=== PATIENT | female | born 1955 | race Caucasian/White ===

== ENCOUNTER 2019-09-04 20:59 | Inpatient (IN) | payer BC, OTHER ==
[~2019-09-04] VITALS: Ht 160 cm; Wt 104.2 kg
--- NOTE | 2019-09-04 21:24 | ED Lower Extremity ---
General Chief Complaint: Lower Extremity Stated Complaint: L ANKLE INJ Source: patient Exam Limitations: no limitations (YVETTE JOSEPH,) History of Present Illness Date Seen by Provider: Sep 04, 2019 Time Seen by Provider: 21:13 Initial Comments Ms. Whitaker is here regarding a left ankle injury. She was walking down a ditch in flip flops and slid. She heard a pop and noticed her ankle was wobbly. She also describes it as tight. She states it is pretty tender to the touch and she is unable to bear weight. She has not taken any OTC pain medications. Onset: this evening Severity: moderate Pain/Injury Location: left ankle Method of Injury: other (slid down ditch) (YVETTE JOSEPH,) Initial Comments Here with report of left ankle pain after slipping and falling while wearing flip-flops. She was walking down a hill when she fell. She felt a pop and immediate pain to the left ankle and deformity was noted. Denies other injury or concerns. Approximately 2 hours prior to arrival Onset: this evening Severity: moderate, severe Pain/Injury Location: left ankle Method of Injury: fell, twisted Modifying Factors: Improves With Immobilization; Worse With Movement (JERONIMO AG MD) Allergies and Home Medications Allergies Coded Allergies: No Known Drug Allergies (Unverified , 09/04/19) Patient Home Medication List Home Medication List Reviewed: Yes (YVETTE JOSEPH,) Home Medication List Reviewed: Yes (JERONIMO AG MD) Review of Systems Constitutional: diaphoresis EENTM: no symptoms reported Respiratory: no symptoms reported Cardiovascular: no symptoms reported Gastrointestinal: no symptoms reported Genitourinary: no symptoms reported Musculoskeletal: joint pain (left ankle), joint swelling (left ankle) Skin: no symptoms reported Psychiatric/Neurological: No Symptoms Reported (YVETTE JOSEPH,) Constitutional: see HPI Respiratory: no symptoms reported; No dyspnea on exertion, No short of breath Cardiovascular: No edema, No palpitations Gastrointestinal: No abdominal pain, No nausea, No vomiting Genitourinary: no symptoms reported Musculoskeletal: joint pain (left ankle), joint swelling (left ankle) Skin: No change in color, No lesions (JERONIMO AG MD) All Other Systems Reviewed Negative Unless Noted: Yes (JERONIMO AG MD) Past [id number]-Jnptaq Hx Past Med/Social Hx: Reviewed Nursing Past Med/Soc Hx (JERONIMO AG MD) Patient Social History Alcohol Use: Denies Use Recreational Drug Use: No Smoking Status: Never a Smoker Recent Foreign Travel: No Contact w/Someone Who Travel: No (YVETTE JOSEPH,) Alcohol Use: Denies Use Recreational Drug Use: No Smoking Status: Never a Smoker (JERONIMO AG MD) Past Medical History Surgeries: Yes Eye Surgery (R cataract) Respiratory: No Cardiac: No Neurological: No Genitourinary: No Gastrointestinal: No Musculoskeletal: No Endocrine: Yes Hypothyroidsim HEENT: No Cataract (removed) (YVETTE JOSEPH,) Family Medical History Reviewed Nursing Family Hx (JERONIMO AG MD) Physical Exam Vital Signs Vital Signs - First Documented 09/04/19 21:17 Temp 36.9 Pulse 107 Resp 16 B/P (MAP) 146/86 (106) Pulse Ox 98 O2 Delivery Room Air (JERONIMO AG MD) Vital Signs Capillary Refill : (YVETTE JOSEPH,) Height, Weight, BMI Height: '" Weight: lbs. oz. kg; BMI Method: General Appearance: WD/WN, mild distress Cardiovascular: no murmur, tachycardia (regular rhythm) Respiratory: lungs clear, normal breath sounds Ankles: right ankle non-tender, right ankle normal inspection, right ankle normal range of motion; left ankle deformity, left ankle ecchymosis, left ankle pain, left ankle soft tissue tenderness, left ankle swelling Neurologic/Tendon: normal sensation, motor deficit (could not dorsiflex or plantarflex left foot) (YVETTE JOSEPH,) General Appearance: WD/WN, mild distress HEENT: PERRL/EOMI, pharynx normal Neck: non-tender, full range of motion, supple Cardiovascular: normal peripheral pulses, tachycardia (regular rhythm) Respiratory: lungs clear, normal breath sounds Gastrointestinal: non tender, soft Back: normal inspection, no CVA tenderness, no vertebral tenderness Hips: bilateral hip non-tender, bilateral hip normal inspection, bilateral hip normal range of motion Legs: bilateral leg non-tender, bilateral leg normal inspection, bilateral leg normal range of motion Knees: bilateral knee non-tender, bilateral knee normal inspection, bilateral knee normal range of motion Ankles: left ankle deformity, left ankle ecchymosis, left ankle pain, left ankle soft tissue tenderness, left ankle swelling, left ankle other (deformity noted with lateral turning of the foot.) Neurologic/Tendon: normal sensation, responds to pain Neurologic/Psychiatric: alert, oriented x 3 Skin: warm/dry, ecchymosis (left ankle and foot) (JERONIMO AG MD) Procedures/Interventions Patient Education: Explained Benefits, Explained Risks, Pt. Ack. Understanding Agreement on procedure with pt: Yes Breath Sounds per Auscultation: Clear Heart Sounds per Auscultation: Regular Airway Exam: Mouth opens >2 fingers, Neck Full Range of Motion, Visulation of Uvula Sedation Adminstration Time: 00:12 Total Time spent in CS 15 min Re-examination Time: 00:32 Re-examination Tolerated procedure and sedation well with no complications. No hypoxia, snoring or hypercapnia noted. Patient awake and talking throughout procedure. (JERONIMO AG MD) Splinting and Joint Reduction : Pre-Proc Neuro Vasc Exam: normal Post-Proc Neuro Vasc Exam: normal Progress Ankle fracture/dislocation with trimalleolar fracture to the left ankle. Reduction Attempts: 1 Pre-Procedure NV Exam: Yes Progress With the assistance of consciousness sedation, joint was reduced and splinted with plaster splint over bulky dressing and secured with Braulio wrap. Post x-ray shows good alignment and decreased angulation of bony fragments. Tolerated procedure well with no complications. Hand-Made Type: plaster Splint Application: Short Leg (JERONIMO AG MD) Progress/Results/Core Measures Results/Orders Lab Results Laboratory Tests Test 09/04/19 22:20 Range/Units White Blood Count 13.1 H 4.3-11.0 10^3/uL Red Blood Count 4.73 4.35-5.85 10^6/uL Hemoglobin 12.8 11.5-16.0 G/DL Hematocrit 38 35-52 % Mean Corpuscular Volume 81 80-99 FL Mean Corpuscular Hemoglobin 27 25-34 PG Mean Corpuscular Hemoglobin Concent 34 32-36 G/DL Red Cell Distribution Width 14.9 H 10.0-14.5 % Platelet Count 351 130-400 10^3/uL Mean Platelet Volume 11.4 H 7.4-10.4 FL Neutrophils (%) (Auto) 67 42-75 % Lymphocytes (%) (Auto) 22 12-44 % Monocytes (%) (Auto) 10 0-12 % Eosinophils (%) (Auto) 1 0-10 % Basophils (%) (Auto) 0 0-10 % Neutrophils # (Auto) 8.8 H 1.8-7.8 X 10^3 Lymphocytes # (Auto) 2.9 1.0-4.0 X 10^3 Monocytes # (Auto) 1.3 H 0.0-1.0 X 10^3 Eosinophils # (Auto) 0.1 0.0-0.3 10^3/uL Basophils # (Auto) 0.0 0.0-0.1 10^3/uL Sodium Level 139 135-145 MMOL/L Potassium Level 3.3 L 3.6-5.0 MMOL/L Chloride Level 105 98-107 MMOL/L Carbon Dioxide Level 21 21-32 MMOL/L Anion Gap 13 5-14 MMOL/L Blood Urea Nitrogen 11 7-18 MG/DL Creatinine 0.97 0.60-1.30 MG/DL Estimat Glomerular Filtration Rate 58 BUN/Creatinine Ratio 11 Glucose Level 110 H 70-105 MG/DL Calcium Level 9.0 8.5-10.1 MG/DL Corrected Calcium 8.9 8.5-10.1 MG/DL Total Bilirubin 0.7 0.1-1.0 MG/DL Aspartate Amino Transf (AST/SGOT) 18 5-34 U/L Alanine Aminotransferase (ALT/SGPT) 15 0-55 U/L Alkaline Phosphatase 76 40-136 U/L Total Protein 7.3 6.4-8.2 GM/DL Albumin 4.1 3.2-4.5 GM/DL (JERONIMO AG MD) My Orders Orders - JERONIMO AG MD Tibia/Fibula, Left, 2 Views (09/04/19 21:24) Ankle, Left, 3 Views (09/04/19 21:24) Cbc With Automated Diff (09/04/19 23:22) Comprehensive Metabolic Panel (09/04/19 23:22) Fentanyl Injection (Sublimaze Injection (09/04/19 23:22) Fentanyl Injection (Sublimaze Injection (09/04/19 23:42) Midazolam Injection (Versed Injection) (09/04/19 23:45) (JERONIMO AG MD) Medications Given in ED Current Medications Medications Dose Ordered Sig/Maritza Route Start Time Stop Time Status Last Admin Dose Admin Midazolam HCl 5 mg ONCE ONCE IVP 09/04/19 23:45 09/04/19 23:46 DC 09/05/19 00:10 2.5 MG (JERONIMO AG MD) Vital Signs/I&O 09/04/19 21:17 Temp 36.9 Pulse 107 Resp 16 B/P (MAP) 146/86 (106) Pulse Ox 98 O2 Delivery Room Air (JERONIMO AG MD) Progress Progress Note : Progress Note I have seen and evaluated the patient and agree with above except as indicated. I Have directed the plan of care. Patient is here with fracture dislocation of left ankle. Plan for conscious sedation and reduction. 2220: I did discuss the case with Dr. Farooq and he accepts patient for admission. Patient will require medicine consult for clearance for OR. Medicine team to be consulted in the morning. Fentanyl 50 g IV given for pain. 0012: Conscious sedation initiated for procedure for closed reduction and splinting of left ankle. 0035: Procedure complete with good alignment post reduction and splinting. Patient tolerated procedure well with no complications. Fentanyl 100 g IV and Versed 2.5 mg IV given for sedation and pain control. Patient will go upstairs now. (JERONIMO AG MD) Diagnostic Imaging Diagonstic Imaging: Xray Plain Films/CT/US/NM/MRI: other Comments [facility], [place] NAME: YUNIOR WHITAKER [facility] REC#: [id number] PT STATUS: REG ER : 1955 PHYSICIAN: JERONIMO AG MD ADMIT DATE: 09/04/19/ER Signed Date of Exam:09/04/19 TIBIA/FIBULA, LEFT, 2 VIEWS EXAMINATION: Left tibia and fibula 2 views HISTORY: Trauma COMPARISON: None available. FINDINGS: Bimalleolar fracture is better described on dedicated ankle radiographs. Proximal tibia and fibula are normal. IMPRESSION: 1. Bimalleolar ankle fracture better described on dedicated films. No proximal tibia-fibula fracture seen. Dictated by: Dictated on workstation # [id number] Dict: 09/04/192147 Trans: 09/04/192151 [facility] [phone] Interpreted by: YVONNE MEDINA MD Electronically signed by: YVONNE MEDINA MD 09/04/192151 Reviewed: Reviewed by Me Diagonstic Imaging: Xray Plain Films/CT/US/NM/MRI: ankle Comments [facility] [place] NAME: YUNIOR WHITAKER [facility] REC#: [id number] PT STATUS: REG ER : 1955 PHYSICIAN: JERONIMO AG MD ADMIT DATE: 09/04/19/ER Signed Date of Exam:09/04/19 ANKLE, LEFT, 3 VIEWS EXAMINATION: Left ankle 3 views HISTORY: Trauma COMPARISON: None available. FINDINGS: There is marked disruption of the ankle mortise due to a severely comminuted bimalleolar ankle fracture. There is also fracture of the malleus tertius. There is posterior dislocation of the talus relative to the distal tibia. There is severe soft tissue swelling. IMPRESSION: 1. Marked disruption of the ankle mortise with posterior dislocation of the talus due to a severely comminuted trimalleolar ankle fracture. Dictated by: Dictated on workstation # [id number] Dict: 09/04/192148 Trans: 09/04/192158 [facility] [phone] Interpreted by: YVONNE MEDINA MD Electronically signed by: YVONNE MEDINA MD 09/04/192158 Reviewed: Reviewed by Me Diagonstic Imaging: Xray Plain Films/CT/US/NM/MRI: ankle Comments Postreduction two-view film shows ankle and much better position with better bone alignment and decreased dislocation. Reviewed: Reviewed by Me (JERONIMO AG MD) Departure Communication (Admissions) Time/Spoke to Admitting Phy: 22:20 (JERONIMO AG MD) Impression Primary Impression: Trimalleolar fracture of left ankle Qualified Codes: S82.852A - Displaced trimalleolar fracture of left lower leg, initial encounter for closed fracture Disposition: ADMITTED INPATIENT Condition: Stable Admissions Decision to Admit Reason: Admit from ER (General) Decision to Admit/Date: Sep 04, 2019 Time/Decision to Admit Time: 22:20 (JERONIMO AG MD) Departure-Patient Inst. Referrals: NO,LOCAL PHYSICIAN (PCP/Family) Primary Care Physician YVETTE JOSEPH, Sep 04, 2019 21:24 JERONIMO AG MD Sep 05, 2019 00:36
--- OUTSIDE RECORDS SUMMARY | 2019-09-04 21:40 | XMS REPORT ---
Author Author Radha GARCIA Organization [facility] Address [address] [place] [id number] Care Team Providers Care Flocculator Operator Name Role Phone LILI GARCIA PCP LILI GARCIA PreferredProvider Allergies and Adverse Reactions Name Reaction Notes NO KNOWN DRUG ALLERGIES Plan of Treatment Not available. Medications Active Name Start Date Estimated Completion Date SIG Co mments levothyroxine 75 mcg oral tablet 07/11/2019 TAKE 1 TABLET(75 MCG) BY MOUTH EVERY DAY Name Start Date Expiration Date SIG Comments hydrochlorothiazide 12.5 mg oral tablet 07/14/2011 10/12/2011 take 1 tablet (12.5 mg) by oral route once daily for 30 days phentermine 37.5 mg oral tablet 09/08/2011 10/08/2011 take 1 tablet (37.5 mg) by oral route once daily before breakfast for 30 days Discontinued Name Start Date Discontinued Date SIG Comments Retin-A 0.025 % topical cream 08/13/2011 08/21/2014 ap ply to the affected area(s) by topical route once daily at bedtime phentermine 37.5 mg oral tablet 07/20/2016 07/11/2019 1/2 po in the am Synthroid 75 mcg oral tablet 07/11/2019 07/11/2019 MILKA E 1 TABLET (75 MCG) BY ORAL ROUTE ONCE DAILY Problem List Description Status Onset Medication management Active 06/28/2016 Acquired hypothyroidism Active 06/28/2016 Morbid obesity due to excess calories Active Vital Signs Date Time BP-Sys(mm[Hg] BP-Lu(mm[Hg]) HR(bpm) RR(rpm) Temp WT HT HC BMI BSA BMI Percentile O2 Sat(%) 06/18/2016 3:38:00 PM 125 mm[Hg] 88 mm[Hg] 60 {beats}/min 18 rpm 97.4 F 199.312 lbs 62 in 36.4544 kg/m2 1.9887 m2 98 % 05/16/2015 9:08:00 AM 128 mm[Hg] 60 mm[Hg] 68 {beats}/min 18 rpm 96.1 F 182 lbs 66 in 29.38 kg/m2 1.96 m2 97 % 08/21/2014 7:43:00 AM 140 mm[Hg] 85 mm[Hg] 92 {beats}/min 18 rpm 98.2 F 200 lbs 62 in 36.5801 kg/m2 1.9921 m2 99 % 09/08/2011 5:35:00 PM 124 mm[Hg] 66 mm[Hg] 66 {beats}/min 18 rpm 153.25 lbs 62 in 28.03 kg/m2 1.74 m2 08/11/2011 5:34:00 PM 126 mm[Hg] 64 mm[Hg] 68 {beats}/min 18 rpm 98.5 F 166.25 lbs 62 in 30.4072 kg/m2 1.8163 m2 07/14/2011 5:26:00 PM 128 mm[Hg] 68 mm[Hg] 68 {beats}/min 18 rpm 98.2 F 182 lbs 62 in 33.29 kg/m2 1.90 m2 08/12/2010 5:29:00 PM 130 mm[Hg] 82 mm[Hg] 83 {beats}/min 20 rpm 98.4 F 180.5 lbs 62 in 33.0135 kg/m2 1.8925 m2 99 % Social History Name Description Comments Tobacco Never smoker Uses seatbelts Alcohol Unknown History of Procedures Date Ordered Description Order Status 11/22/2014 12:00 AM ROUTINE VENIPUNCTURE Reviewed 11/22/2014 12:00 AM ASSAY OF TOTAL THYROXINE Reviewed 11/22/2014 12:00 AM ASSAY THYROID STIM HORMONE Reviewed 11/22/2014 12:00 AM ASSAY OF THYROID (T3 OR T4) Reviewed 05/16/2015 12:00 AM COMPLETE CBC W/AUTO DIFF WBC Reviewed 05/16/2015 12:00 AM COMPREHEN METABOLIC PANEL Reviewed 05/16/2015 12:00 AM LIPID PANEL Reviewed 05/16/2015 12:00 AM ROUTINE VENIPUNCTURE Reviewed 05/16/2015 12:00 AM ASSAY THYROID STIM HORMONE Reviewed 05/16/2015 12:00 AM ASSAY OF FREE THYROXINE Reviewed 11/18/2015 12:00 AM COMPLETE CBC W/AUTO DIFF WBC Returned 11/18/2015 12:00 AM COMPREHEN METABOLIC PANEL Returned 11/18/2015 12:00 AM LIPID PANEL Returned 11/18/2015 12:00 AM ROUTINE VENIPUNCTURE Reviewed 11/18/2015 12:00 AM ASSAY THYROID STIM HORMONE Returned 11/18/2015 12:00 AM ASSAY OF FREE THYROXINE Returned 05/19/2016 12:00 AM ROUTINE VENIPUNCTURE Reviewed 05/19/2016 12:00 AM ASSAY THYROID STIM HORMONE Returned 05/19/2016 12:00 AM ASSAY OF FREE THYROXINE Returned 08/12/2010 12:00 AM TB INTRADERMAL TEST Reviewed 08/21/2014 12:00 AM COMPLETE CBC W/AUTO DIFF WBC Reviewed 08/21/2014 12:00 AM COMPREHEN METABOLIC PANEL Reviewed 08/21/2014 12:00 AM LIPID PANEL Reviewed 08/21/2014 12:00 AM ASSAY THYROID STIM HORMONE Reviewed 08/21/2014 12:00 AM ASSAY OF FREE THYROXINE Reviewed Results Summary Date and Description Results 08/21/2014 4:06 PM WBC 9.0 RBC 4.94 HGB 13.50 g /dLHCT 41.40 %MCV 84.0 fLMCH 27.30 pgMCHC 32.60 g/dLRDW SD 46 RDW CV 14.90 %MPV 11.30 fLPLT 341 NRBC# 0.00 NRBC% 0.0 %NEUT 53.90 %%LYMP 39.0 %%MONO 4.90 %%EOS 1.90 %%BASO 0.30 %#NEUT 4.85 #LYMP 3.51 #MONO 0.44 #EOS 0.17 #BASO 0.03 MANUAL DIFF NOT IND TSH 7.650 uIU/mLFREE T4 0.90 GLUCOSE 105.0 mg/dLSODIUM 142.0 mmol/LPOTASSIUM 4.20 mmol/LCHLORIDE 110.0 mmol/LCO2 21.0 mmol/LBUN 11.0 mg/dLCREATININE 0.90 mg/dLSGOT/AST 15.0 IU/LSGPT/ALT 14.0 IU/LALK PHOS 75.0 IU/LTOTAL PROTEIN 6.60 g/dLALBUMIN 4.0 g/dLTOTAL BILI 0.70 mg/dLCALCIUM 9.0 mg/dLAGE 59 GFR NonAA 64 GFR AA 78 eGFR >60 mL/min/1.73 m2eGFR AA* >60 TRIGLYCERIDES 106.0 mg/dLCHOLESTEROL 168.0 mg/dLHDL 55.0 mg/dLTOT CHOL/HDL 3.1 LDL (CALC) 92.0 mg/dL 11/22/2014 3:16 PM TSH 1.530 uIU/mL 05/16/2015 4:09 PM TRIGLYCERIDES 98.0 mg/dLCHOL ESTEROL 189.0 mg/dLHDL 61.0 mg/dLTOT CHOL/HDL 3.1 LDL (CALC) 108.0 mg/dLWBC 8.9 RBC 4.88 HGB 13.10 g/dLHCT 41.40 %MCV 85.0 fLMCH 26.80 pgMCHC 31.60 g/dLRDW SD 47 RDW CV 15.20 %MPV 11.10 fLPLT 380 NRBC# 0.00 NRBC% 0.0 %NEUT 57.90 %%LYMP 34.80 %%MONO 5.60 %%EOS 1.50 %%BASO 0.20 %#NEUT 5.14 #LYMP 3.09 #MONO 0.50 #EOS 0.13 #BASO 0.02 MANUAL DIFF NOT IND GLUCOSE 75.0 mg/dLSODIUM 142.0 mmol/LPOTASSIUM 4.60 mmol/LCHLORIDE 107.0 mmol/LCO2 23.0 mmol/LBUN 9.0 mg/dLCREATININE 0.80 mg/dLSGOT/AST 15.0 IU/LSGPT/ALT 11.0 IU/LALK PHOS 76.0 IU/LTOTAL PROTEIN 6.50 g/dLALBUMIN 4.0 g/dLTOTAL BILI 0.70 mg/dLCALCIUM 8.60 mg/dLAGE 59 GFR NonAA 73 GFR AA 88 eGFR >60 mL/min/1.73 m2eGFR AA* >60 TSH 1.930 uIU/mLFREE T4 1.05 History Of Immunizations Name Date Admin Mfg Name Mfg Code Trade Name Lot# Route Inj Vis Given Vis Pub CVX ZVL 03/17/2016 Not Entered NE Not Entered Not Entered Not En tered 03/17/2016 03/08/2019 999 History of Past Illness Name Date of Onset Comments General Medical Exam, Adult Aug 12 2010 5:29PM Medication management 06/28/2016 Acquired hypothyroidism 06/28/2016 Morbid obesity due to excess calories 06/28/2016 Body Mass Index [BMI]; body mass index b etween 30-39, adult; body mass index 33.0-33.9, adult Jul 14 2011 5:28PM Dietary Counseling Jul 14 2011 5:28PM Exercise Counseling Jul 14 2011 5:28PM Edema Jul 14 2011 5:28PM Body Mass Index [BMI]; body mass index b etween 30-39, adult; body mass index 30.0-30.9, adult Aug 11 2011 5:36PM Hypertension Aug 11 2011 5:36PM Overweight Sep 08 2011 5:37PM Dietary Counseling Sep 08 2011 5:37PM Exercise Counseling Sep 08 2011 5:37PM Body Mass Index [BMI]; body mass index b etween 25-29, adult; body mass index 28.0-28.9, adult Sep 08 2011 5:37PM Fatigue Aug 21 2014 7:27AM Weight gain Aug 21 2014 7:27AM Hyperlipidemia Aug 21 2014 7:27AM Dietary Counseling Aug 21 2014 7:43AM Exercise Counseling Aug 21 2014 7:43AM Body Mass Index [BMI]; body mass index b etween 30-39, adult; body mass index 32.0-32.9, adult Aug 21 2014 7:43AM Polyphagia Aug 21 2014 7:43AM Hypothyroid Nov 22 2014 7:47AM Fatigue May 16 2015 7:37AM Weight gain May 16 2015 7:37AM Hyperlipidemia May 16 2015 7:37AM Hypothyroidism, Acquired Stable May 16 2015 9:08AM Fatigue Nov 18 2015 9:02AM Weight gain Nov 18 2015 9:02AM Hyperlipidemia Nov 18 2015 9:02AM Hypothyroid May 19 2016 1:01PM Morbid obesity due to excess calories Jun 18 2016 3:39PM Dietary Counseling Jun 18 2016 3:39PM Exercise Counseling Jun 18 2016 3:39PM Acquired hypothyroidism Jun 18 2016 3:39PM Medication management Jun 18 2016 3:39PM Medication refill Jul 11 2019 12:55PM Acquired hypothyroidism Jul 11 2019 12:55PM Payers Not available. History of Encounters Visit Date Visit Type Provider 07/11/2019 Office visit LILI SOUZA 06/18/2016 Office visit LILI SOUZA 05/19/2016 Laboratory 05/19/2016 Laboratory LILI SOUZA 11/18/2015 Office visit 11/18/2015 Office visit LILI SOUZA 05/16/2015 Office visit 05/16/2015 Office visit 05/16/2015 Office visit LILI SOUZA 11/22/2014 Office visit LILI SOUZA 08/21/2014 Office visit 08/21/2014 Office visit 08/21/2014 Office visit LILI SOUZA 09/08/2011 Office visit Veronica Velez APRN 08/11/2011 Office visit Veronica Velez APRN 07/14/2011 Office visit Veronica Velez APRN 08/12/2010 Office visit Veronica Velez APRN
--- OUTSIDE RECORDS SUMMARY | 2019-09-04 21:41 | XMS REPORT ---
Author Author [facility] Organization [facility] Address [address] [place] [id number] Care Team Providers Care Box Closing Machine Operator Name Role Phone PCP Unavailable Allergies and Adverse Reactions Name Reaction Notes NO KNOWN DRUG ALLERGIES Plan of Treatment Not available. Medications Active Name Start Date Estimated Completion Date SIG Co mments phentermine oral tablet 37.5 mg 08/28/2014 1/ po in the am Synthroid oral tablet 75 mcg 08/29/2014 bryan e 1 tablet (75 mcg) by oral route once daily Name Start Date Expiration Date SIG Comments hydrochlorothiazide Oral Tablet 12.5 mg 07/14/2011 10/12/2011 take 1 tablet (12.5 mg) by oral route once daily for 30 days phentermine Oral Tablet 37.5 mg 09/08/2011 10/08/2011 take 1 tablet (37.5 mg) by oral route once daily before breakfast for 30 days Discontinued Name Start Date Discontinued Date SIG Comments Retin-A Topical Cream 0.025 % 08/13/2011 08/21/2014 ap ply to the affected area(s) by topical route once daily at bedtime Problem List Not available. Vital Signs Date Time BP-Sys(mm[Hg] BP-Lu(mm[Hg]) HR(bpm) RR(rpm) Temp WT HT HC BMI BSA BMI Percentile O2 Sat(%) 08/21/2014 7:43:00 AM 140 mmHg 85 mmHg 92 bpm 18 rpm 98.2 F 200 lbs 62 in 36.58 kg/m2 1.99 m2 99 % 09/08/2011 5:35:00 PM 124 mmHg 66 mmHg 66 bpm 18 rpm 153.25 lbs 62 in 28.0295 kg/m 1.7438 m 08/11/2011 5:34:00 PM 126 mmHg 64 mmHg 68 bpm 18 rpm 98.5 F 166.25 lbs 62 in 30.41 kg/m2 1.82 m2 07/14/2011 5:26:00 PM 128 mmHg 68 mmHg 68 bpm 18 rpm 98.2 F 182 lbs 62 in 33.2879 kg/m 1.9003 m 08/12/2010 5:29:00 PM 130 mmHg 82 mmHg 83 bpm 20 rpm 98.4 F 180.5 lbs 62 in 33.01 kg/m2 1.89 m2 99 % Social History Name Description Comments smoking History of Procedures Date Ordered Description Order Status 08/12/2010 12:00 AM TB INTRADERMAL TEST Reviewed 08/21/2014 12:00 AM COMPLETE CBC W/AUTO DIFF WBC Returned 08/21/2014 12:00 AM COMPREHEN METABOLIC PANEL Returned 08/21/2014 12:00 AM LIPID PANEL Returned 08/21/2014 12:00 AM ASSAY THYROID STIM HORMONE Returned 08/21/2014 12:00 AM ASSAY OF FREE THYROXINE Returned Results Summary Data and Description Results 08/21/2014 4:06 PM WBC 9.0 RBC 4.94 HGB 13.50 g /dLHCT 41.40 %MCV 84.0 fLMCH 27.30 pgMCHC 32.60 g/dLRDW CV 14.90 %MPV 11.30 fLPLT 341 %NEUT 53.90 %%LYMP 39.0 %%MONO 4.90 %%EOS 1.90 %%BASO 0.30 %#NEUT 4.85 #LYMP 3.51 #MONO 0.44 #EOS 0.17 #BASO 0.03 TSH 7.650 uIU/mLGLUCOSE 105.0 mg/dLSODIUM 142.0 mmol/LPOTASSIUM 4.20 mmol/LCHLORIDE 110.0 mmol/LCO2 21.0 mmol/LBUN 11.0 mg/dLCREATININE 0.90 mg/dLSGOT/AST 15.0 IU/LSGPT/ALT 14.0 IU/LALK PHOS 75.0 IU/LTOTAL PROTEIN 6.60 g/dLALBUMIN 4.0 g/dLTOTAL BILI 0.70 mg/dLCALCIUM 9.0 mg/dLeGFR >60 mL/min/1.73 [id number] 106.0 mg/dLCHOLESTEROL 168.0 mg/dLHDL 55.0 mg/dLLDL (CALC) 92.0 mg/dL History Of Immunizations Not available. History of Past Illness Name Date of Onset Comments *No known medical problems General Medical Exam, Adult Aug 12 2010 5:29PM Body Mass Index [BMI]; body mass index [...] 2014 7:43AM Polyphagia Aug 21 2014 7:43AM Payers Not available. History of Encounters Visit Date Visit Type Provider 08/21/2014 Office visit LILI SOUZA 09/08/2011 Office visit Veronica Velez APRN 08/11/2011 Office visit Veronica Velez APRN 07/14/2011 Office visit Veronica Velez APRN 08/12/2010 Office visit Veronica Velez APRN
--- OUTSIDE RECORDS SUMMARY | 2019-09-04 21:41 | XMS REPORT ---
Author Author Radha GARCIA Organization [facility] Address [address] [place], [place] [id number] Care Team Providers Care Customer Account Manager Name Role Phone LILI GARCIA PCP Unavailable Allergies and Adverse Reactions Name Reaction Notes NO KNOWN DRUG ALLERGIES Plan of Treatment Planned Activity Comments Planned Date Planned Time Plan/Goal COMPLETE CBC W/AUTO DIFF WBC 11/22/2014 12:00 AM COMPREHEN METABOLIC PANEL 11/22/2014 12:00 AM LIPID PANEL 11/22/2014 12:00 AM ASSAY THYROID STIM HORMONE 11/22/2014 12:00 AM ASSAY OF FREE THYROXINE 11/22/2014 12:00 AM Medications Active Name Start Date Estimated Completion Date SIG Co mments Synthroid 75 mcg oral tablet 08/29/2014 bryan e 1 tablet (75 mcg) by oral route once daily phentermine 37.5 mg oral tablet 09/20/2014/ po in the am Name Start Date Expiration Date SIG Comments [...] % Social History Name Description Comments smoking Never History of Procedures Date Ordered Description Order Status 11/22/2014 12:00 AM ROUTINE VENIPUNCTURE Reviewed 08/12/2010 12:00 AM TB INTRADERMAL TEST Reviewed [...] BILI 0.70 mg/dLCALCIUM 9.0 mg/dLeGFR >60 mL/min/1.73 [id number] 106.0 mg/dLCHOLESTEROL 168.0 mg/dLHDL 55.0 mg/dLLDL (CALC) [...] 2014 7:43AM Polyphagia Aug 21 2014 7:43AM Fatigue Nov 22 2014 7:47AM Hypothyroid Nov 22 2014 7:47AM Payers Not available. History of Encounters Visit Date Visit Type Provider 11/22/2014 Office visit LILI SOUZA 08/21/2014 Office visit LILI SOUZA 09/08/2011 Office visit Veronica Velez APRN 08/11/2011 Office visit eVronica Velez APRN 07/14/2011 Office visit Veronica Velez APRN 08/12/2010 Office visit Veronica Vleez APRN
--- OUTSIDE RECORDS SUMMARY | 2019-09-04 21:41 | XMS REPORT ---
Author Author Radha GARCIA Organization [facility] Address [address] [place], [place] [id number] Care Team Providers Care Manager Supply Name Role Phone LILI GARCIA PCP Unavailable Allergies and Adverse Reactions Name Reaction Notes NO KNOWN DRUG ALLERGIES Plan of Treatment Planned Activity Comments Planned Date Planned Time Plan/Goal ASSAY OF TOTAL THYROXINE 11/22/2014 12:00 AM ASSAY THYROID STIM HORMONE 11/22/2014 12:00 AM ASSAY OF THYROID (T3 OR T4) 11/22/2014 12:00 AM Medications Active Name Start Date Estimated Completion Date SIG Co mments Synthroid 75 mcg oral tablet 08/29/2014 bryan e 1 tablet (75 mcg) by oral route once daily phentermine 37.5 mg oral tablet 09/20/201403/09 po in the am Name Start Date [...] BILI 0.70 mg/dLCALCIUM 9.0 mg/dLeGFR >60 mL/min/1.73 [id number] 106.0 mg/dLCHOLESTEROL 168.0 mg/dLHDL 55.0 mg/dLLDL (CALC) [...] 2014 7:43AM Hypothyroid Nov 22 2014 7:47AM Payers Not available. History of Encounters Visit Date Visit Type Provider 11/22/2014 Office visit LILI SOUZA 08/21/2014 Office visit LILI SOUZA 09/08/2011 Office visit Veronica Velez APRN 08/11/2011 Office visit Veronica Velez APRN 07/14/2011 Office visit Veronica Velez APRN 08/12/2010 Office visit Veronica Velez APRN
--- OUTSIDE RECORDS SUMMARY | 2019-09-04 21:41 | XMS REPORT ---
Author Author Radha GARCIA Organization [facility] Address [address] [place], [place] [id number] Care Team Providers Care Basketball Coach Name Role Phone LILI GARCIA PCP Unavailable Allergies and Adverse Reactions Name Reaction Notes NO KNOWN DRUG ALLERGIES Plan of Treatment Not available. Medications Active Name Start Date Estimated Completion Date SIG Co mments Synthroid 75 mcg oral tablet 08/29/2014 bryan e 1 tablet (75 mcg) by oral route once daily phentermine 37.5 mg oral tablet 05/18/2015 1/2 po in the am Synthroid 75 mcg oral tablet 05/18/2015 BRYAN E 1 TABLET (75 MCG) BY ORAL ROUTE ONCE DAILY Name Start Date Expiration Date SIG Comments [...] HC BMI BSA BMI Percentile O2 Sat(%) 05/16/2015 9:08:00 AM 128 mmHg 60 mmHg 68 bpm 18 rpm 96.1 F 182 lbs 66 in 29.38 kg/m2 1.96 m2 97 % 08/21/2014 7:43:00 AM 140 mmHg 85 mmHg 92 bpm 18 rpm 98.2 F 200 lbs 62 in 36.5801 kg/m 1.9921 m 99 % 09/08/2011 5:35:00 PM 124 mmHg 66 mmHg 66 bpm 18 rpm 153.25 lbs 62 in 28.03 kg/m2 1.74 m2 08/11/2011 5:34:00 PM 126 mmHg 64 mmHg 68 bpm 18 rpm 98.5 F 166.25 lbs 62 in 30.4072 kg/m 1.8163 m 07/14/2011 5:26:00 PM 128 mmHg 68 mmHg 68 bpm 18 rpm 98.2 F 182 lbs 62 in 33.29 kg/m2 1.90 m2 08/12/2010 5:29:00 PM 130 mmHg 82 mmHg 83 bpm 20 rpm 98.4 F 180.5 lbs 62 in 33.0135 kg/m 1.8925 m 99 % Social History Name Description Comments smoking Never History of Procedures Date Ordered Description Order Status 11/22/2014 12:00 AM ROUTINE VENIPUNCTURE Reviewed 11/22/2014 12:00 AM ASSAY OF TOTAL THYROXINE Returned 11/22/2014 12:00 AM ASSAY THYROID STIM HORMONE Returned 11/22/2014 12:00 AM ASSAY OF THYROID (T3 OR T4) Returned 05/16/2015 12:00 AM COMPLETE CBC W/AUTO DIFF WBC Returned 05/16/2015 12:00 AM COMPREHEN METABOLIC PANEL Returned 05/16/2015 12:00 AM LIPID PANEL Returned 05/16/2015 12:00 AM ROUTINE VENIPUNCTURE Reviewed 05/16/2015 12:00 AM ASSAY THYROID STIM HORMONE Returned 05/16/2015 12:00 AM ASSAY OF FREE THYROXINE Returned [...] BILI 0.70 mg/dLCALCIUM 9.0 mg/dLeGFR >60 mL/min/1.73 [id number] 106.0 mg/dLCHOLESTEROL 168.0 mg/dLHDL 55.0 mg/dLLDL (CALC) 92.0 mg/dL 11/22/2014 3:16 PM TSH 1.530 uIU/mLT4 6.50 ug/d LT3 TOTAL 92.0 ng/dL 05/16/2015 4:09 PM TRIGLYCERIDES 98.0 mg/dLCHOL ESTEROL 189.0 mg/dLHDL 61.0 mg/dLLDL (CALC) 108.0 mg/dLWBC 8.9 RBC 4.88 HGB 13.10 g/dLHCT 41.40 %MCV 85.0 fLMCH 26.80 pgMCHC 31.60 g/dLRDW CV 15.20 %MPV 11.10 fLPLT 380 %NEUT 57.90 %%LYMP 34.80 %%MONO 5.60 %%EOS 1.50 %%BASO 0.20 %#NEUT 5.14 #LYMP 3.09 #MONO 0.50 #EOS 0.13 #BASO 0.02 GLUCOSE 75.0 mg/dLSODIUM 142.0 mmol/LPOTASSIUM 4.60 mmol/LCHLORIDE 107.0 mmol/LCO2 23.0 mmol/LBUN 9.0 mg/dLCREATININE 0.80 mg/dLSGOT/AST 15.0 IU/LSGPT/ALT 11.0 IU/LALK PHOS 76.0 IU/LTOTAL PROTEIN 6.50 g/dLALBUMIN 4.0 g/dLTOTAL BILI 0.70 mg/dLCALCIUM 8.60 mg/dLeGFR >60 mL/min/1.73mTSH 1.930 uIU/mL History Of Immunizations Not available. History of [...] Hypothyroidism, Acquired Stable May 16 2015 9:08AM Payers Not available. History of Encounters Visit Date Visit Type Provider 05/16/2015 Office visit 05/16/2015 Office visit 05/16/2015 Office visit LILI SOUZA 11/22/2014 Office visit LILI SOUZA 08/21/2014 Office visit 08/21/2014 Office visit 08/21/2014 Office visit LILI SOUZA 09/08/2011 Office visit Veronica Velez APRN 08/11/2011 Office visit Veronica Velez APRN 07/14/2011 Office visit Veronica Velez APRN 08/12/2010 Office visit Veronica Velez APRN
--- OUTSIDE RECORDS SUMMARY | 2019-09-04 21:41 | XMS REPORT ---
Author Author [facility] ou Organization [facility] Address [address] [place], [place] [id number] Care Team Providers Care Drill Operator Name Role Phone PCP Unavailable Allergies and Adverse Reactions Name Reaction Notes NO KNOWN DRUG ALLERGIES Plan of Treatment Not available. Medications Active Name Start Date Estimated Completion Date SIG Co mments phentermine oral tablet 37.5 mg 08/28/201403/09 po in the am Name Start Date [...] BILI 0.70 mg/dLCALCIUM 9.0 mg/dLeGFR >60 mL/min/1.73 [id number] 106.0 mg/dLCHOLESTEROL 168.0 mg/dLHDL 55.0 mg/dLLDL (CALC) [...]
--- OUTSIDE RECORDS SUMMARY | 2019-09-04 21:41 | XMS REPORT ---
Author Author Radha GARCIA Organization [facility] Address [address] [place], [place] [id number] Care Team Providers Care Aco Coordinator Name Role Phone LILI GARCIA PCP Unavailable [...] BILI 0.70 mg/dLCALCIUM 9.0 mg/dLeGFR >60 mL/min/1.73 [id number] 106.0 mg/dLCHOLESTEROL 168.0 mg/dLHDL 55.0 mg/dLLDL (CALC) [...]
--- OUTSIDE RECORDS SUMMARY | 2019-09-04 21:41 | XMS REPORT ---
Author Author Radha GARCIA Organization [facility] Address [address] [place], [place] [id number] Care Team Providers Care Hairspring Assembler Name Role Phone LILI GARCIA PCP Unavailable Allergies and Adverse Reactions Name Reaction Notes NO KNOWN DRUG ALLERGIES Plan of Treatment Planned Activity Comments Planned Date Planned Time Plan/Goal COMPLETE CBC W/AUTO DIFF WBC 11/18/2015 12:00 AM COMPREHEN METABOLIC PANEL 11/18/2015 12:00 AM LIPID PANEL 11/18/2015 12:00 AM ASSAY THYROID STIM HORMONE 11/18/2015 12:00 AM ASSAY OF FREE THYROXINE 11/18/2015 12:00 AM Medications Active Name Start Date [...] 12:00 AM ASSAY OF FREE THYROXINE Returned 11/18/2015 12:00 AM ROUTINE VENIPUNCTURE Reviewed 08/12/2010 12:00 [...] BILI 0.70 mg/dLCALCIUM 9.0 mg/dLeGFR >60 mL/min/1.73 [id number] 106.0 mg/dLCHOLESTEROL 168.0 mg/dLHDL 55.0 mg/dLLDL (CALC) [...] 2015 9:02AM Hyperlipidemia Nov 18 2015 9:02AM Payers Not available. History of Encounters Visit Date Visit Type Provider 11/18/2015 Office visit 11/18/2015 Office visit LILI [...]
--- OUTSIDE RECORDS SUMMARY | 2019-09-04 21:41 | XMS REPORT ---
Author Author Radha GARCIA Organization [facility] Address [address] [place] [id number] Care Team Providers Care Transcribing Operators Supervisor Name Role Phone LILI GARCIA PCP Unavailable LILI GARCIA PreferredProvider Unavailable Allergies and Adverse Reactions Name Reaction Notes NO KNOWN DRUG ALLERGIES Plan of Treatment Planned Activity Comments Planned Date Planned Time Plan/Goal TSH (thyroid stimulating hormone) 05/19/2016 12:00 A M Free T4 05/19/2016 12:00 AM Medications Active Name Start Date Estimated Completion Date SIG Co mments Synthroid 75 mcg oral tablet 08/29/2014 bryan e 1 tablet (75 mcg) by oral route once daily phentermine 37.5 mg oral tablet 05/18/2015 1/2 po in the am Synthroid 75 mcg oral tablet 11/21/2015 BRYAN E 1 TABLET (75 MCG) BY [...] Returned 05/19/2016 12:00 AM ROUTINE VENIPUNCTURE Reviewed 08/12/2010 12:00 AM TB INTRADERMAL TEST Reviewed 08/21/2014 12:00 AM COMPLETE CBC W/AUTO DIFF WBC Reviewed 08/21/2014 12:00 AM COMPREHEN METABOLIC PANEL Reviewed 08/21/2014 12:00 AM LIPID PANEL Reviewed 08/21/2014 12:00 AM ASSAY THYROID STIM HORMONE Reviewed 08/21/2014 12:00 AM ASSAY OF FREE THYROXINE Reviewed Results Summary Data and Description Results 08/21/2014 [...] 92.0 mg/dL 11/22/2014 3:16 PM TSH 1.530 uIU/mLFREE T4 1.14 T4 6.50 ug/dLT3 TOTAL 92.0 ng/dL 05/16/2015 4:09 PM TRIGLYCERIDES [...] NonAA 73 GFR AA 88 eGFR >60 mL/min/1.73meGFR AA* >60 TSH 1.930 uIU/mLFREE T4 1.05 11/18/2015 4:41 PM TRIGLYCERIDES 134.0 mg/dLCHO LESTEROL 192.0 mg/dLHDL 55.0 mg/dLTOT CHOL/HDL 3.5 LDL (CALC) 110.0 mg/dLGLUCOSE 104.0 mg/dLSODIUM 141.0 mmol/LPOTASSIUM 4.40 mmol/LCHLORIDE 108.0 mmol/LCO2 22.0 mmol/LBUN 10.0 mg/dLCREATININE 0.90 mg/dLSGOT/AST 14.0 IU/LSGPT/ALT 9.0 IU/LALK PHOS 86.0 IU/LTOTAL PROTEIN 6.80 g/dLALBUMIN 4.10 g/dLTOTAL BILI 0.60 mg/dLCALCIUM 9.0 mg/dLAGE 60 GFR NonAA 64 GFR AA 78 eGFR >60 mL/min/1.73meGFR AA* >60 TSH 2.430 uIU/mLFREE T4 1.04 WBC 9.8 RBC 5.12 HGB 13.30 g/dLHCT 42.70 %MCV 83.0 fLMCH 26.0 pgMCHC 31.10 g/dLRDW SD 45 RDW CV 14.60 %MPV 10.90 fLPLT 390 NRBC# 0.00 NRBC% 0.0 %NEUT 52.50 %%LYMP 39.60 %%MONO 5.30 %%EOS 1.70 %%BASO 0.40 %#NEUT 5.16 #LYMP 3.90 #MONO 0.52 #EOS 0.17 #BASO 0.04 MANUAL DIFF SEE BELOW SEGS 53 BANDS 1 LYMPHS 39 MONOS 6 EOS 1.0 % History Of Immunizations Name Date Admin Mfg Name Mfg Code Trade Name Lot# Route Inj Vis Given Vis Pub CVX Zostavax 03/17/2016 Not Entered NE Not Entered Not Entered N ot Entered 03/17/2016 03/08/2016 999 History of Past Illness Name Date [...] 2015 9:02AM Hypothyroid May 19 2016 1:01PM Payers Not available. History of Encounters Visit Date Visit Type Provider 05/19/2016 Laboratory 05/19/2016 Laboratory Uzma Wallace DOMRAN 11/18/2015 Office visit 11/18/2015 Office visit LILI [...]
--- OUTSIDE RECORDS SUMMARY | 2019-09-04 21:41 | XMS REPORT ---
Author Author [facility] ou Organization [facility] Address [address] [place], [place] [phone] Care Team Providers Care Ground Crewman Mission Support Name Role Phone PCP Unavailable Allergies and Adverse Reactions Name Reaction Notes NO KNOWN DRUG ALLERGIES Plan of Treatment Planned Activity Comments Planned Date Planned Time Plan/Goal COMPLETE CBC W/AUTO DIFF WBC 08/21/2014 12:00 AM COMPREHEN METABOLIC PANEL 08/21/2014 12:00 AM LIPID PANEL 08/21/2014 12:00 AM ASSAY THYROID STIM HORMONE 08/21/2014 12:00 AM ASSAY OF FREE THYROXINE 08/21/2014 12:00 AM Medications Name Start Date Expiration Date SIG Comments [...] HC BMI BSA BMI Percentile O2 Sat(%) 09/08/2011 5:35:00 PM 124 mmHg 66 mmHg [...] 08/12/2010 12:00 AM TB INTRADERMAL TEST Reviewed Results Summary Not available. History Of Immunizations Not available. History of [...] 2014 7:27AM Hyperlipidemia Aug 21 2014 7:27AM Payers Not available. History of Encounters Visit Date Visit Type Provider 08/21/2014 Office visit LILI SOUZA 09/08/2011 Office visit Veronica Velez APRN 08/11/2011 Office visit Veronica Velez APRN 07/14/2011 Office visit Veronica Velez APRN 08/12/2010 Office visit Veronica Velez APRN
--- OUTSIDE RECORDS SUMMARY | 2019-09-04 21:42 | XMS REPORT | Continuity of Care Document ---
Author Organization Unknown Address Unknown Phone Unavailable Allergies Active Description Code Type Severity Reaction Onset Reported/Identified Relationship to Patient Clinical Status Yes No Known Drug Allergies [id number] Drug Allergy Unknown N/A 09/04/2019 Medications There is no data. Problems There is no data. Procedures There is no data. Results There is no data. Encounters ACCT No. Visit Date/Time Discharge Status Pt. Type Provider Facility Loc./Unit Complaint [id number] 07/11/2019 12:13:03 07/11/2019 23:59: [facility] Outpatient LILI GARCIA [id number] 06/30/2016 11:41:25 06/30/2016 23:59: [facility] Outpatient LILI GARCIA [id number] 05/19/2016 08:49:44 05/19/2016 23:59: [facility] Outpatient LILI GARCIA [id number] 11/18/2015 08:31:27 11/18/2015 23:59: [facility] Outpatient LILI GARCIA [id number] 05/16/2015 08:17:37 05/16/2015 23:59: [facility] Outpatient LILI GARCIA [id number] 11/22/2014 08:15:24 11/22/2014 23:59: [facility] Outpatient LILI GARCIA [id number] 10/15/2014 21:55:40 10/15/2014 23:59: [facility] Outpatient LILI GARCIA [id number] 09/04/2019 21:01:[address] Emergency ANCELMO SERRANO, JERONIMO Rahman [facility] ER L ANKLE INJ
--- OUTSIDE RECORDS SUMMARY | 2019-09-04 21:42 | XMS REPORT ---
Author Author Radha GARCIA Organization [facility] Address [address] [place] [phone] Care Team Providers Care Child Care Associate Teacher Name Role Phone LILI GARCIA PCP Unavailable LILI GARCIA PreferredProvider Unavailable Allergies and Adverse Reactions Name Reaction Notes NO KNOWN DRUG ALLERGIES Plan of Treatment Not available. Medications Active Name Start Date Estimated Completion Date SIG Co mments Synthroid 75 mcg oral tablet 08/29/2014 bryan e 1 tablet (75 mcg) by oral route once daily Synthroid 75 mcg oral tablet 05/21/2016 BRYAN E 1 TABLET (75 MCG) BY ORAL ROUTE ONCE DAILY Synthroid 75 mcg oral tablet 06/22/2016 BRYAN E 1 TABLET (75 MCG) BY ORAL ROUTE ONCE DAILY Synthroid 75 mcg oral tablet 06/22/2016 BRYAN E 1 TABLET (75 MCG) BY ORAL ROUTE ONCE DAILY phentermine 37.5 mg oral tablet 06/18/2016 1/2 po in the am Name Start Date [...] route once daily at bedtime Problem List Description Status Onset Medication management Active 06/28/2016 Acquired hypothyroidism Active 06/28/2016 Morbid obesity due to excess calories Active Vital Signs Date Time BP-Sys(mm[Hg] BP-Lu(mm[Hg]) HR(bpm) RR(rpm) Temp WT HT HC BMI BSA BMI Percentile O2 Sat(%) 06/18/2016 3:38:00 PM 125 mmHg 88 mmHg 60 bpm 18 rpm 97.4 F 199.312 lbs 62 in 36.45 kg/m2 1.99 m2 98 % 05/16/2015 9:08:00 AM 128 mmHg 60 mmHg 68 bpm 18 rpm 96.1 F 182 lbs 66 in 29.3753 kg/m 1.9607 m 97 % 08/21/2014 7:43:00 AM 140 mmHg [...] LYMPHS 39 MONOS 6 EOS 1.0 % 05/19/2016 4:26 PM TSH 1.950 uIU/mLFREE T4 1.17 History Of Immunizations Name Date Admin Mfg [...] 3:39PM Medication management Jun 18 2016 3:39PM Payers Not available. History of Encounters Visit Date Visit Type Provider 06/18/2016 Office visit LILI SOUZA 05/19/2016 Laboratory 05/19/2016 Laboratory LILI SOUZA 11/18/2015 Office visit 11/18/2015 Office visit LILI SOUZA 05/16/2015 Office visit 05/16/2015 Office visit 05/16/2015 Office visit ILLI SOUZA 11/22/2014 Office visit LILI SOUZA 08/21/2014 Office visit 08/21/2014 Office visit 08/21/2014 Office visit LILI SOUZA 09/08/2011 Office visit Veronica Velez APRN 08/11/2011 Office visit Veronica Velez APRN 07/14/2011 Office visit Veronica Velez APRN 08/12/2010 Office visit Veronica Velez APRN
--- NOTE | 2019-09-04 21:51 | Diagnostic Imaging Report ---
EXAMINATION: Left tibia and fibula 2 views HISTORY: Trauma COMPARISON: None available. FINDINGS: Bimalleolar fracture is better described on dedicated ankle radiographs. Proximal tibia and fibula are normal. IMPRESSION: 1. Bimalleolar ankle fracture better described on dedicated films. No proximal tibia-fibula fracture seen. Dictated by: Dictated on workstation # [id number]
--- NOTE | 2019-09-04 21:59 | Diagnostic Imaging Report ---
EXAMINATION: Left ankle 3 views HISTORY: Trauma COMPARISON: None available. FINDINGS: There is marked disruption of the ankle mortise due to a severely comminuted bimalleolar ankle fracture. There is also fracture of the malleus tertius. There is posterior dislocation of the talus relative to the distal tibia. There is severe soft tissue swelling. IMPRESSION: 1. Marked disruption of the ankle mortise with posterior dislocation of the talus due to a severely comminuted trimalleolar ankle fracture. Dictated by: Dictated on workstation # [id number]
[2019-09-04] MEDS ORDERED: fentaNYL INJECTION 100 MCG/2 ML AMP IVP STA ×2 (23:22→23:42)
[2019-09-04 23:32] LABS: BASOPHILS % (AUTO) 0 % (0-10); EOSINOPHILS # (AUTO) 0.1 10^3/uL (0.0-0.3); EOSINOPHILS % (AUTO) 1 % (0-10); HEMATOCRIT 38 % (35-52); HEMOGLOBIN 12.8 G/DL (11.5-16.0); LYMPHOCYTES # (AUTO) 2.9 X 10^3 (1.0-4.0); LYMPHOCYTES % (AUTO) 22 % (12-44); MEAN CORPUSCULAR HEMOGLOBIN 27 PG (25-34); MEAN CORPUSCULAR HGB CONC 34 G/DL (32-36); MEAN CORPUSCULAR VOLUME 81 FL (80-99); MEAN PLATELET VOLUME 11.4 FL (7.4-10.4); MONOCYTES # (AUTO) 1.3 X 10^3 (0.0-1.0); MONOCYTES % (AUTO) 10 % (0-12); NEUTROPHILS # (AUTO) 8.8 X 10^3 (1.8-7.8); NEUTROPHILS % (AUTO) 67 % (42-75); PLATELET COUNT 351 10^3/uL (130-400); RED CELL DISTRIBUTION WIDTH 14.9 % (10.0-14.5); WHITE BLOOD COUNT 13.1 10^3/uL (4.3-11.0)
[2019-09-04 23:33] LABS: ALBUMIN 4.1 GM/DL (3.2-4.5); POTASSIUM 3.3 MMOL/L (3.6-5.0)
[2019-09-04 23:35] LABS: TOTAL PROTEIN 7.3 GM/DL (6.4-8.2)
[2019-09-04 23:37] LABS: BILIRUBIN,TOTAL 0.7 MG/DL (0.1-1.0)
[2019-09-04 23:39] LABS: CREATININE SERUM 0.97 MG/DL (0.60-1.30)
[2019-09-04] MEDS ORDERED: MIDAZOLAM 5 MG/5 ML (VERSED) VIAL IVP ONE (23:45)
[2019-09-05] VITALS (11 sets, daily range): BP systolic 125–156; BP diastolic 64–81
--- OUTSIDE RECORDS SUMMARY | 2019-09-05 00:28 | XMS REPORT | Continuity of Care Document ---
Author Organization Unknown Address Unknown Phone Unavailable Allergies Active Description Code Type Severity Reaction Onset Reported/Identified Relationship to Patient Clinical Status Yes No Known Drug Allergies [id number] Drug Allergy Unknown N/A 09/04/2019 Medications There is no data. Problems There is no data. Procedures There is no data. Results There is no data. Encounters ACCT No. Visit Date/Time Discharge Status Pt. Type Provider Facility Loc./Unit Complaint [id number] 07/11/2019 12:13:03 07/11/2019 23:59: [facility] Outpatient LILI GARCIA [id number] 06/30/2016 11:41:25 06/30/2016 23:59: 59 [facility] Outpatient LILI GARCIA [id number] 05/19/2016 08:49:44 05/19/2016 23:59: 59 [facility] Outpatient LILI GARCIA [id number] 11/18/2015 08:31:27 11/18/2015 23:59: 59 [facility] Outpatient LILI GARCIA [id number] 05/16/2015 08:17:37 05/16/2015 23:59: 59 [facility] Outpatient LILI GARCIA [id number] 11/22/2014 08:15:24 11/22/2014 23:59: 59 [facility] Outpatient LILI GARCIA [id number] 10/15/2014 21:55:40 10/15/2014 23:59: 59 [facility] Outpatient LILI GARCIA [id number] 09/04/2019 21:01:[address] Emergency ANCELMO SERRANO, JERONIMO Rahman [facility] ER L ANKLE INJ
--- NOTE | 2019-09-05 00:55 | NUR ---
YUNIOR WHITAKER admitted to room 406-1, with an admitting diagnosis of trimalleolar fracture of left ankle, on 09/05/19 from ER via bed, accompanied by er staff. YUNIOR WHITAKER introduced to surroundings, call light, bed controls, phone, TV, temperature control, lights, meal times, smoking policy, visitor policy, side rail policy, bathrooms and showers. Patient Rights given to patient in the handbook. YUNIOR WHITAKER verbalizes understanding that [facility] is not responsible for the loss or damage to any personal effects or valuables that are kept in the patients posession during their hospitalization.
[2019-09-05] MEDS ORDERED: NS IV 1000 ML 1,000 ML ONE (01:26)
[2019-09-05] MEDS: NS IV 1000 ML 1,000 ML IV SCH ×2 (01:55→13:15)
[2019-09-05] MEDS ORDERED: ONDANSETRON 4 MG/2 ML (SDV) Z0FRAN IV PRN (02:00)
[2019-09-05] MEDS ORDERED: fentaNYL INJECTION 100 MCG/2 ML AMP IV PRN (02:00)
--- NOTE | 2019-09-05 06:01 | Diagnostic Imaging Report ---
Indication: Left ankle fracture follow-up 3 views of left ankle show an oblique fracture of the distal fibula, there is an avulsion fracture with medial displacement of the medial malleolus. There is a nondisplaced posterior malleolar fracture. IMPRESSION: Trimalleolar fracture. The tibiotalar relationship has been corrected following closed reduction. Dictated by: Dictated on workstation # [id number]
--- NOTE | 2019-09-05 08:50 | NUR ---
COVID 19 SWAB WAS DONE AND SENT TO LAB -- COPY OF FORM WILL BE GIVEN TO [facility] DEVELOPER
--- NOTE | 2019-09-05 09:02 | History & Physical Orthopedic ---
History and Physical Subjective Date of Exam 09/05/19 Chief Complaint Left ankle fracture HPI/Events since last exam Ms. Turk is a 64-year-old white female who injured her left ankle last evening while going down into a ditch. She stated she is wearing flip-flops and slipped and heard a pop in her ankle. She was unable to bear weight and noted a deformity of her ankle. She is brought to the emergency room where she is evaluated and x-rayed and noted to have a trimalleolar fracture left ankle. She denies any other injuries. No previous injury to left ankle. She was splinted after reduction and admitted for surgical treatment. She is from [place] and has no physician in this area. She does see Crispin Fuller is a [facility] and [place]. She does have a history of hypothyroidism Medical, Surgical History Surgerycataracts Illnesseshypothyroidism Allergiesnone Medicationthyroid medication Social History The patient is retired. She did own a day care. She does live in [place] Family History Reviewed and unchanged Review of Systems Negative for cardiovascular disease pulmonary disease renal disease history of hypothyroidism Allergies: Coded Allergies: No Known Drug Allergies (Unverified , 09/04/19) Home Medication List Reviewed: Yes Objective Exam Constitutional: []Ms Olson is a 64-year-old white female in no acute distress. She is alert and oriented HEENT: [] Within normal limits Neck: [] Full motion without pain. No pain with palpation Cardiovascular: [] Regular rhythm without murmurs Respiratory: [] Clear Gastrointestinal: [] Negative Genitourinary: [] Negative Skin: [] Negative Back/Spine: [] No pain with palpation or motion Extremities: [] Upper extremity shows full range of motion without pain. No deformity. Normal sensation with good cap refill. Good radial pulses. No pain at the shoulders, elbows, wrists or hands Lower extremitiesfull range of motion right hip, right knee and right ankle without pain. No deformity. She has normal sensation with good cap refill and good pulses in the right lower extremity. Left lower extremity she has a splint on the left ankle. She is able to move her toes and has normal sensation with good capillary refill. No pain with palpation at the knee or hip. No pain with gentle range of motion of the left knee and left hip Neurologic: [] Intact Psychiatric: [] Within normal limits Hematologic/lymphatic/immunologic: [] Negative Vital Signs Vital Signs Date Time Temp Pulse Resp B/P (MAP) Pulse Ox O2 Delivery O2 Flow Rate FiO2 09/05/19 08:00 94 Room Air 2.00 09/05/19 04:45 37.4 80 16 153/81 (105) 94 Room Air 09/05/19 01:03 38.1 100 18 155/80 95 Room Air 09/05/19 01:00 95 Room Air 09/05/19 00:43 87 16 142/62 96 09/05/19 00:20 92 16 157/84 94 Nasal Cannula 2.00 09/05/19 00:15 95 16 150/70 89 Room Air 09/05/19 00:09 36.8 90 16 163/66 99 Room Air 09/05/19 00:09 Nasal Cannula 2.00 09/04/19 21:17 36.9 107 16 146/86 (106) 98 Room Air I & O 09/05/19 07:00 Intake Total 0 ml Balance 0 ml Lab Results Laboratory Tests 09/04/19 22:20: White Blood Count 13.1H, Red Blood Count 4.73, Hemoglobin 12.8, Hematocrit 38, Mean Corpuscular Volume 81, Mean Corpuscular Hemoglobin 27, Mean Corpuscular Hemoglobin Concent 34, Red Cell Distribution Width 14.9H, Platelet Count 351, Mean Platelet Volume 11.4H, Neutrophils (%) (Auto) 67, Lymphocytes (%) (Auto) 22, Monocytes (%) (Auto) 10, Eosinophils (%) (Auto) 1, Basophils (%) (Auto) 0, Neutrophils # (Auto) 8.8H, Lymphocytes # (Auto) 2.9, Monocytes # (Auto) 1.3H, Eosinophils # (Auto) 0.1, Basophils # (Auto) 0.0, Sodium Level 139, Potassium Level 3.3L, Chloride Level 105, Carbon Dioxide Level 21, Anion Gap 13, Blood Urea Nitrogen 11, Creatinine 0.97, Estimat Glomerular Filtration Rate 58, BUN/Creatinine Ratio 11, Glucose Level 110H, Calcium Level 9.0, Corrected Calcium 8.9, Total Bilirubin 0.7, Aspartate Amino Transf (AST/SGOT) 18, Alanine Aminotransferase (ALT/SGPT) 15, Alkaline Phosphatase 76, Total Protein 7.3, Albumin 4.1 09/05/19 08:31: Imaging X-rays prereduction show a subluxation of the talus posterior laterally with fracture of the fibula medial malleolus and posterior malleolus. The posterior malleolar fragment does not involve the articular surface. Postreduction showed improvement in alignment but still displacement of the medial malleolus. Assessment and Plan Assessment Fracture left ankle Problem List Trimalleolar fracture left ankle Hypothyroidism History of cataracts Plan Treatment options were discussed with the patient. I recommended open reduction internal fixation. Plan on plate and screws laterally and screws medially. I explained her that usually the posterior malleolar fragment being nonarticular does not need to be fixed and usually reduces with fixation medial and laterally. I discussed use of anabolic screen postop as well as DVT prophylaxis. I would recommend aspirin 1 a day for a month. We will plan on getting her up first day postop. We'll use compression devices on the right. She would prefer not having injections for DVT prophylaxis Final Diagonsis Trimalleolar fracture left ankle Level of the visit: Level 3 DALJIT PEPE MD Sep 05, 2019 09:02
[2019-09-05] MEDS ORDERED: NEO/POLY/BAC (NEOSPORIN) OINT 15 GM TUBE ONE (09:10)
[2019-09-05] MEDS ORDERED: ceFAZolin 2 GM IV Premixed 50 ML IV ONE (09:15)
[2019-09-05] MEDS ORDERED: proPOfol 200 MG/20 ML (DIPRIVAN) VIAL IV ONE (09:28)
[2019-09-05] MEDS ORDERED: fentaNYL INJECTION 100 MCG/2 ML AMP ONE (09:28)
[2019-09-05] MEDS ORDERED: LIDOCAINE PF 2% 5 ML (XYLOCAINE) VIAL ONE ×2 (09:28→10:50)
[2019-09-05] MEDS ORDERED: BUP/EPI 0.5% 1:200,000 (SENSORCAINE) 30 ML VIAL ONE ×2 (09:28→11:54)
[2019-09-05] MEDS ORDERED: MIDAZOLAM 2 MG/2 ML (VERSED) VIAL ONE (09:29)
[2019-09-05] MEDS ORDERED: LACTATED RINGERS 1,000 ML IV PRN (09:42)
--- NOTE | 2019-09-05 10:24 | Consultation - Hospitalist ---
HPI History of Present Illness: HPI/Chief Complaint CC: Left ankle fracture HPI: This is a 64yoWF clinic Pt of [facility] Borjaer in [place] who has a history of hypothyroidism, who presents after falling with her flip-flop shoe down in a bit of a ditch while she was visiting her boyfriend in [place], she lives in [place], who sustained a very complex left trimalar fracture that is requiring a repair by Dr. Farooq today after I met her. She denies any significant heart or lung history and she doesn't smoke or drink alcohol so she will undergo this surgery and likely admit to inpatient rehab for further evaluation and management. Source: patient, RN/MD Date Seen 09/05/19 Attending Physician Yamil Farooq MD PCP Fernie Fuller Referring Physician Date of Admission Sep 05, 2019 at 00:00 Home Medications & Allergies Home Medications Reviewed patient Home Medication Reconciliation performed by pharmacy medication reconciliations automobile glass technician and/or nursing. Patients Allergies have been reviewed. Allergies Allergies Coded Allergies No Known Drug Allergies (Unverified09/04/19) Past Bbcmpyw-Ipjwyv-Gyhdaj Hx Past Med/Social Hx: Reviewed Nursing Past Med/Soc Hx, Reviewed and Corrections made Patient Social History Marrital Status: single Employed/Student: retired Alcohol Use: Denies Use Recreational Drug Use: No Smoking Status: Never a Smoker 2nd Hand Smoke Exposure: No Recent Foreign Travel: No Contact w/other who traveled: No Recent Infectious Disease Expo: No Past Medical History Surgeries: Eye Surgery (R cataract) : No Endocrine: Hypothyroidsim HEENT: Cataract (removed) Family History Reviewed Nursing Family Hx Diabetes mellitus 19 MOTHER FHx: lung cancer 19 FATHER Review of Systems Constitutional: see HPI Musculoskeletal: other (left ankle pain) Physical Exam Physical Exam Vital Signs Vital Signs - First Documented 09/04/19 21:17 Temp 36.9 Pulse 107 Resp 16 B/P (MAP) 146/86 (106) Pulse Ox 98 O2 Delivery Room Air Capillary Refill : Less Than 3 SecondsLess Than 3 Seconds Height, Weight, BMI Height: '" Weight: lbs. oz. kg; 40.70 BMI Method: General Appearance: No Apparent Distress, WD/WN, Obese Eyes: Bilateral Eye Normal Inspection, Bilateral Eye PERRL HEENT: PERRL/EOMI, TMs Normal, Normal ENT Inspection, Pharynx Normal Neck: Full Range of Motion, Normal Inspection, Non Tender, Supple, Carotid Bruit Respiratory: Chest Non Tender, Lungs Clear, Normal Breath Sounds, No Accessory Muscle Use, No Respiratory Distress Cardiovascular: Regular Rate, Rhythm, No Edema, No Gallop, No JVD, No Murmur, Normal Peripheral Pulses Gastrointestinal: Normal Bowel Sounds, No Organomegaly, No Pulsatile Mass, Non Tender, Soft Back: Normal Inspection, No CVA Tenderness, No Vertebral Tenderness Extremity: Normal Capillary Refill, Normal Inspection, Normal Range of Motion, Non Tender, No Calf Tenderness, No Pedal Edema, Other (left leg in immobilizer) Neurologic/Psychiatric: Alert, Oriented x3, No Motor/Sensory Deficits, Normal Mood/Affect Skin: Normal Color, Warm/Dry Lymphatic: No Adenopathy Results Results/Procedures Labs Laboratory Tests 09/04/19 22:20 Patient resulted labs reviewed. Assessment/Plan Assessment and Plan Assess & Plan/Chief Complaint Assessment: Fall Left ankle fracture Hypothyroidism Obesity Plan: Pain control Surgical benefits outweigh medical risks Lovenox Clinical Quality Measures DVT/VTE Risk/Contraindication: Risk Factor Score Per Nursin RFS Level Per Nursing on Admit: 4+=Very High CAPRICE BALDWIN DO Sep 05, 2019 10:24
[2019-09-05] MEDS ORDERED: ROPIVACAINE 5MG/ML 30ML VIAL ONE ×2 (10:46→10:47)
[2019-09-05] MEDS ORDERED: HYDROmorphone 2 MG/ML VIAL (DILAUDID) ONE (10:46)
[2019-09-05] MEDS ORDERED: KETOROLAC 30 MG/ML VIAL ONE (12:04)
[2019-09-05] MEDS ORDERED: PHENYLEPHRINE 100 MCG/ML 10 ML (ANESTHESIA) SYR ONE (12:06)
[2019-09-05] MEDS ORDERED: SEVOFLURANE (ULTANE) 15 ML INHAL SOLN ONE (12:18)
--- NOTE | 2019-09-05 12:28 | Diagnostic Imaging Report ---
INDICATION: Ankle fracture, undergoing fixation. TECHNIQUE: 6 intraprocedural images left ankle FINDINGS/ IMPRESSION: The hospital radiology department provided fluoroscopic imaging for the clinical service in support of an interventional procedure. A radiologist was not involved in the procedure. Please reference the operating provider's procedure note. Fluoroscopy Time: 35.1 seconds Intraprocedure imaging demonstrates a placement of a lateral cortical plate and multiple screws over the obliquely oriented fracture of the distal fibular shaft. Additionally there are 2 partially threaded cannulated screws transfixing the medial malleolus fracture. The alignment appears to be significantly improved and near-anatomic, on the limited intraprocedure images. Slight defect along the dorsal aspect of the distal to be likely owing to the posterior tibial fracture. Dictated by: Dictated on workstation # [id number]
[2019-09-05] MEDS ORDERED: HYDROmorphone 2 MG/ML VIAL (DILAUDID) IV ONE (12:30)
[2019-09-05] MEDS ORDERED: ONDANSETRON 4 MG/2 ML (SDV) Z0FRAN IVP PRN (12:30)
[2019-09-05] MEDS ORDERED: fentaNYL INJECTION 100 MCG/2 ML AMP IVP PRN ×2 (12:45→13:15)
[2019-09-05] MEDS ORDERED: oxyCODONE/APAP 5/325MG (PERCOCET 5) TABLET PO PRN (12:45)
--- NOTE | 2019-09-05 12:55 | Operative Report - Ortho ---
Operative Report Surgeon (s)/Reproduction Technician (s) Surgeon DALJIT PEPE MD Reproduction Technician n/a Pre-Operative Diagnosis trimalleolar fracture left ankle Post-Operative Diagnosis same Operative Report Date of Procedure: Sep 05, 2019 Name of Procedure Performed: Open reduction internal fixation of trimalleolar fracture left ankle with a distal fibular locking plate laterally and 2 4.0 mm cannulated cancellus screws Description & Findings Description and Findings: The patient was seen in the preoperative area and she had no further questions or concerns. In the preoperative area anesthesia inserted a popliteal block. The patient was then taken to the operating room and placed on the OR table. After general anesthesia tourniquet was placed on the left thigh. The splint was removed from the left lower leg and ankle was inspected. There is mild swelling. No skin changes. Good dorsalis pedis pulse. After refill. The left foot and lower leg were then prepped and draped in usual sterile manner. The leg was exsanguinated with Esmarch and the tourniquet was elevated to 300 mmHg. The first incision was lateral over the distal fibula. Started at the tip and extended proximally proximally 10 cm. This was taken down through subcutaneous tissue. Bleeders are cauterized. Soft tissue was elevated off the distal fibula and retracted. Fracture was identified and there was a long thin butterfly fragment posterior. The fracture was easily reduced and held with reduction clamps. A 5 hole distal fibular locking plate was then laced on the fibula and secured with the reduction clamps. This is found to fit well. The initial cancellus screw was placed in the slot and the plate was adjusted. Screws were placed distally and locked using 5 distal screws. The 2 most proximal or just above the joint line. Next locking screws are placed proximally. Images use a visualize the fracture reduction, plate position and final fixation of the fibula and excellent alignment of fracture was noted with some mild displacement of the butterfly fragment that was again to thin the fix. Good position of plate and screws were noted. At this point an incision was made obliquely across the medial malleolus. This was taken down through subcutaneous tissue. Fracture was identified and almost completely reduced anatomically. Initial adjustment was made and secured with reduction clamp. At this 0.2 guidewires were placed through the tip of the medial malleolus cross fracture into the distal tibia. These were checked with image. Good position was noted. The fracture was reduced anatomically. These were overdrilled and then a 42 mm 4.0 cannulated cancellous screws were inserted over the guidewires with good purchase. This held the fracture in good position. The guidewires were removed. X-rays were again obtained with image and excellent alignment of the ankle fracture was noted with the posterior malleolar fragment reduced. This did not involve the articular surface. The mortise was symmetrical. The syndesmosis showed no widening. The syndesmosis was then stressed with a reduction clamp on the fibula as well as external rotation of the ankle. There is no increased widening of the syndesmosis with stress. Again good position of the plate and screws laterally the screws medially and the fractures including the posterior malleolus. At this point tourniquet was deflated after 43 minutes. There is minimal bleeding. The wounds were irrigated with normal saline. The lateral wound was closed with 0 Vicryl then 2-0 Vicryl and skin clips. Medial wound was closed with 2-0 Vicryl and skin clips. Both wounds were injected with 0.5 percent Marcaine with epinephrine. Wounds were dressed with antibiotic ointment and Adaptic and 4 x 4's and wrapped with web roll. A posterior and sugar tong splints were then applied and wrapped with Braulio wraps. The patient was then transferred to her hospital bed and recovery room in good condition, she tolerated the procedure well. [id number] minutes at 300 mmHg Blood loss30 mL Replacementnone Complicationsnone n/a Anesthesia Type Gen. Estimated Blood Loss 30 mL's Packing none. Specimen(s) collected/removed None DALJIT PEPE MD Sep 05, 2019 12:55
[2019-09-05] MEDS ORDERED: CATHETER FLUSH 10 ML SYR IV PRN (13:00)
--- NOTE | 2019-09-05 13:15 | NUR ---
BACK ON FLOOR REPORT FROM INFORMATION TECHNOLOGY DATA ANALYST --PT AND S.O. ASKING ABOUT GOING HOME TODAY
--- NOTE | 2019-09-05 14:35 | NUR ---
AT [address] PEPE ABOUT PT GOING HOME TODAY PER PT REQUEST
--- NOTE | 2019-09-05 15:07 | Progress Note - Ortho ---
Progress Note Subjective Date of Exam 09/05/19 Chief Complaint Postop open reduction internal fixation left ankle fracture HPI/Events since last exam Patient is postop open reduction internal fixation left ankle fracture. She states she is really not having any pain. She does have a little bit of nausea. She states she still little bit drowsy. Review of Systems Unchanged Allergies: Coded Allergies: No Known Drug Allergies (Unverified , 09/04/19) Objective Exam Constitutional: [] HEENT: [] Neck: [] Cardiovascular: [] Respiratory: [] Gastrointestinal: [] Genitourinary: [] Skin: [] Back/Spine: [] Extremities: [] Knee splint is intact. No pain at the knee. She can move her toes without pain. She has normal sensation with good capillary refill Neurologic: [] Psychiatric: [] Hematologic/lymphatic/immunologic: [] Vital Signs Vital Signs Date Time Temp Pulse Resp B/P (MAP) Pulse Ox O2 Delivery O2 Flow Rate FiO2 09/05/19 13:00 Room Air 09/05/19 13:00 36.5 14 136/70 (92) 95 Room Air 09/05/19 12:50 Room Air 09/05/19 12:50 14 126/65 (85) 97 Room Air 09/05/19 12:40 16 127/75 (92) 98 OxyMask 3 09/05/19 12:40 Room Air 09/05/19 12:30 12 128/64 (85) 98 OxyMask 8 09/05/19 12:30 OxyMask 5 09/05/19 12:20 14 125/72 (89) 97 OxyMask 10 09/05/19 12:20 OxyMask 10 09/05/19 12:13 OxyMask 10 09/05/19 12:13 37.2 16 130/78 (95) 97 OxyMask 10 09/05/19 12:00 Room Air 09/05/19 08:00 94 Room Air 2.00 09/05/19 08:00 36.8 86 18 156/74 (101) 96 Room Air 09/05/19 04:45 37.4 80 16 153/81 (105) 94 Room Air 09/05/19 01:03 38.1 100 18 155/80 95 Room Air 09/05/19 01:00 95 Room Air 09/05/19 00:43 87 16 142/62 96 09/05/19 00:20 92 16 157/84 94 Nasal Cannula 2.00 09/05/19 00:15 95 16 150/70 89 Room Air 09/05/19 00:09 36.8 90 16 163/66 99 Room Air 09/05/19 00:09 Nasal Cannula 2.00 09/04/19 21:17 36.9 107 16 146/86 (106) 98 Room Air I & O 09/05/19 07:00 Intake Total 0 ml Balance 0 ml Lab Results Laboratory Tests 09/04/19 22:20: White Blood Count 13.1H, Red Blood Count 4.73, Hemoglobin 12.8, Hematocrit 38, Mean Corpuscular Volume 81, Mean Corpuscular Hemoglobin 27, Mean Corpuscular Hemoglobin Concent 34, Red Cell Distribution Width 14.9H, Platelet Count 351, Mean Platelet Volume 11.4H, Neutrophils (%) (Auto) 67, Lymphocytes (%) (Auto) 22, Monocytes (%) (Auto) 10, Eosinophils (%) (Auto) 1, Basophils (%) (Auto) 0, Neutrophils # (Auto) 8.8H, Lymphocytes # (Auto) 2.9, Monocytes # (Auto) 1.3H, Eosinophils # (Auto) 0.1, Basophils # (Auto) 0.0, Sodium Level 139, Potassium Level 3.3L, Chloride Level 105, Carbon Dioxide Level 21, Anion Gap 13, Blood Urea Nitrogen 11, Creatinine 0.97, Estimat Glomerular Filtration Rate 58, BUN/Creatinine Ratio 11, Glucose Level 110H, Calcium Level 9.0, Corrected Calcium 8.9, Total Bilirubin 0.7, Aspartate Amino Transf (AST/SGOT) 18, Alanine Aminotransferase (ALT/SGPT) 15, Alkaline Phosphatase 76, Total Protein 7.3, Albumin 4.1 09/05/19 08:31: Assessment and Plan Assessment Doing well postop Problem List Unchanged Plan Continue elevation and ice. Aspirin for DVT prophylaxis. Physical therapy in the morning walker ambulation nonweightbearing on the left. I explained to the patient that if she is doing well tomorrow she could potentially go home but most likely she will stay until . Final Diagonsis Status post open reduction internal fixation left ankle fracture Level of the visit: Level 3 Clinical Quality Measures DVT/VTE Risk/Contraindication: Risk Factor Score Per Nursin RFS Level Per Nursing on Admit: 4+=Very High DALJIT PEPE MD Sep 05, 2019 15:07
[2019-09-05] MEDS: LACTATED RINGERS 1,000 ML IV SCH (17:10)
[2019-09-05] MEDS ORDERED: LEVO75TA6 PO (17:41)
[2019-09-05] MEDS: ceFAZolin 2 GM IV Premixed 50 ML IV SCH (18:11)
[2019-09-05] MEDS ORDERED: ACETAMINOPHEN 500 MG TAB (TYLENOL) PO PRN (19:00)
[2019-09-05] MEDS ORDERED: LOPERAMIDE 2 MG (IMODIUM) TABLET PO PRN (19:00)
[2019-09-05] MEDS ORDERED: diphenhydrAMINE 25 MG TAB (BENADRYL) PO PRN (19:00)
[2019-09-05] MEDS ORDERED: MELATONIN 3 MG TABLET PO PRN (19:00)
[2019-09-05] MEDS ORDERED: DOCUSATE SODIUM 100 MG (COLACE) CAP PO PRN (19:00)
[2019-09-05] MEDS ORDERED: ALPRAZolam 0.25 MG (XANAX) TAB PO PRN (19:00)
[2019-09-05] MEDS ORDERED: LACTULOSE SYRUP 10GM/15ML (ENULOSE) 30ML UDC PO PRN (19:00)
[2019-09-05] MEDS ORDERED: CALCIUM CARBONATE 500 MG (TUMS) TAB.CHEW PO PRN (19:00)
[2019-09-05] MEDS ORDERED: BISACODYL 10 MG SUPP (DULCOLAX) PR PRN (19:00)
[2019-09-05] MEDS: SENNA W/DOCUSATE (SENOKOT S) TABLET PO SCH (20:12)
[2019-09-06 00:01] VITALS: BP 154/82
[2019-09-06] MEDS: ceFAZolin 2 GM IV Premixed 50 ML IV SCH ×2 (02:41→09:25)
[2019-09-06 04:00] VITALS: BP 163/82
[2019-09-06 05:49] VITALS: BP 163/82
[2019-09-06 05:49] LABS: BASOPHILS % (AUTO) 0 % (0-10); EOSINOPHILS % (AUTO) 0 % (0-10); HEMATOCRIT 35 % (35-52); HEMOGLOBIN 11.4 G/DL (11.5-16.0); LYMPHOCYTES # (AUTO) 1.9 X 10^3 (1.0-4.0); LYMPHOCYTES % (AUTO) 15 % (12-44); MEAN CORPUSCULAR HEMOGLOBIN 27 PG (25-34); MEAN CORPUSCULAR HGB CONC 33 G/DL (32-36); MEAN CORPUSCULAR VOLUME 81 FL (80-99); MONOCYTES % (AUTO) 8 % (0-12); NEUTROPHILS # (AUTO) 9.8 X 10^3 (1.8-7.8); NEUTROPHILS % (AUTO) 77 % (42-75); PLATELET COUNT 315 10^3/uL (130-400); RED CELL DISTRIBUTION WIDTH 14.9 % (10.0-14.5); WHITE BLOOD COUNT 12.7 10^3/uL (4.3-11.0)
[2019-09-06 06:02] LABS: ALBUMIN 3.5 GM/DL (3.2-4.5)
[2019-09-06 06:03] LABS: CHLORIDE 109 MMOL/L (98-107); POTASSIUM 3.4 MMOL/L (3.6-5.0); SODIUM 141 MMOL/L (135-145)
[2019-09-06 06:04] LABS: CALCIUM 8.3 MG/DL (8.5-10.1)
[2019-09-06 06:05] LABS: GLUCOSE 123 MG/DL (70-105); TOTAL PROTEIN 6.4 GM/DL (6.4-8.2)
[2019-09-06 06:06] LABS: CARBON DIOXIDE 21 MMOL/L (21-32)
[2019-09-06 06:07] LABS: BILIRUBIN,TOTAL 0.6 MG/DL (0.1-1.0)
[2019-09-06 06:08] LABS: ALKALINE PHOSPHATASE 61 U/L (40-136)
[2019-09-06 06:09] LABS: CREATININE SERUM 0.75 MG/DL (0.60-1.30); GFR ESTIMATED > 60
[2019-09-06 06:10] LABS: BUN/CREATININE RATIO 11
[2019-09-06 06:12] LABS: ALANINE AMINOTRANSFERASE 11 U/L (0-55)
[2019-09-06] MEDS: LACTATED RINGERS 1,000 ML IV SCH ×2 (06:34→06:40)
--- NOTE | 2019-09-06 07:56 | Anesthesia-General Post-Op ---
General Patient Condition Mental Status/LOC: Same as Preop Cardiovascular: Satisfactory Nausea/Vomiting: Absent Respiratory: Satisfactory Pain: Controlled Complications: Absent Post Op Complications Complications None Follow Up Care/Instructions Patient Instructions None needed. Anesthesia/Patient Condition Patient Condition Patient is doing well, no complaints, stable vital signs, no apparent adverse anesthesia problems. No complications reported per nursing. ALFREDO SHAH CRNA Sep 06, 2019 07:56
--- NOTE | 2019-09-06 07:56 | Anesthesia-Regional Post-Op ---
Regional Patient Condition Mental Status: Alert, Oriented x3 Circulation: Same as Pre-Op Headache: Absent Sensation: Full Recovery Motor Block: Absent Post Op Complications Complications None Follow Up Care/Instructions Patient Instructions None needed. Anesthesia/Patient Condition Patient is doing well, no complaints, stable vital signs, no apparent adverse anesthesia problems. No complications reported per nursing. ALFREDO SHAH CRNA Sep 06, 2019 07:56
[2019-09-06 08:00] VITALS: BP 136/76
[2019-09-06] MEDS ORDERED: ASPIRIN 325 MG (5 GR) TABLET PO SCH (08:00)
--- NOTE | 2019-09-06 08:56 | Physical Therapy Evaluation ---
PT Evaluation-General Medical Diagnosis Admission Date Sep 05, 2019 at 00:00 Medical Diagnosis: left ankle fx Onset Date: Sep 05, 2019 Therapy Diagnosis Therapy Diagnosis: impaired mobility, endurance, ROM Precautions Precautions/Isolations: Fall Prevention Weight Bear Status Right Lower Extremity: Right Weight Bearing/Tolerated Left Lower Extremity: Left Non Weight Bearing Referral Physician: Oseas Reason for Referral: Evaluation/Treatment Medical History Additional Medical History hypothyroidism Social History Home: Single Level Current Living Status: Alone Entry Into Home: Stairs With Railing PT Steps Into Home: 5 Patient states she may be staying with her boyfriend for a while who only has one step to enter his home. Prior Prior Level of Function SCALE: Activities may be completed with or without assistive devices. 0-Quqdlyhhaw-jfxywwl completes the activity by him/herself with no assistance from a helper. 5-Set-up or Clean-up Assistance-helper sets up or cleans up; patient completes activity. [place] assists only prior to or following the activity. 4-Supervision or Touching Assistance-helper provides verbal cues and/or touching/steadying and/or contact guard assistance as patient completes activity. Assistance may be provided throughout the activity or intermittently. 3-Partial/Moderate Assistance-helper does LESS THAN HALF the effort. [place] lifts, holds or supports trunk or limbs, but provides less than half the effort. 2-Substantial/Maximal Assistance-helper does MORE THAN HALF the effort. [place] lifts or holds trunk or limbs and provides more than half the effort. 4-Cicsxdljd-ntbxzu does ALL the effort. Patient does none of the effort to complete the activity. Or, the assistance of 2 or more helpers is required for the patient to complete the activity. If activity was not attempted, code reason: 7-Patient Refused. 9-Not Applicable-not attempted and the patient did not perform the activity before the current illness, exacerbation or injury. 10-Not Attempted due to Environmental Limitations-(lack of equipment, weather restraints, etc.). 88-Not Attempted due to Medical Conditions or Safety Concerns. Bed Mobility: 6 Transfers (B,C,W/C): 6 Gait: 6 Stairs: 6 Indoor Mobility (Ambulation): Independent Stairs: Independent PT Evaluation-Current Subjective Patient in bed pre tx, agrees to PT, has no complaints of pain. Pt/Family Goals to be independent at home Objective Patient Orientation: Person, Place, Situation Attachments: IV ROM/Strength ROM Lower Extremities WNL but left ankle not tested, she is able to wiggle her toes on the left side Sensory Hearing: Functional Sensation Right Lower Extremit: Intact Sensation Left Lower Extremity: Intact Transfers Roll Left to Right (QC): 6 Sit to Lying (QC): 6 Lying to Sitting/Side of Bed(Q: 6 Sit to Stand (QC): 4 Chair/Glr-pv-Eofmv Xfer(QC): 4 SBA with sit to stand and transfer. Patient has no LOB, compliant with her WBS. Gait Does the Patient Walk?: Yes Mode of Locomotion: Walk Anticipated Mode of Locomotion: Walk Walk 10 feet (QC): 4 Distance: 15' Gait Assistive Device: FWW Comments/Gait Description slow but steady ambulation, she is able to hop on her right foot, compliant with NWB on left leg. Balance Sitting Static: Normal Sitting Dynamic: Normal Standing Static: Good Standing Dynamic: Good Treatment supine LLE exercises x15 (QS, GS, HS) Assessment/Needs Patient has impaired mobility, endurance, ROM. Patient in bed post tx with nurse call, phone, tray, all needs met. Patient will need a rolling walker for ambulation. Rehab Potential: Fair PT Intermediate Goals Intermediate Goals PT Final Finisher Goals Time Frame: Sep 13, 2019 Roll Left & Right (QC): 6 Sit to Lying (QC): 6 Lying-Sitting on Side/Bed(QC): 6 Sit to Stand (QC): 6 Chair/Idk-jk-Qratw Xfer(QC): 6 Toilet Transfer (QC): 6 Walk 10 feet (QC): 6 Walk 50ft with 2 Turns (QC): 6 PT Plan Problem List Problem List: Activity Tolerance, Functional Strength, Safety, Balance, Gait, Transfer Treatment/Plan Treatment Plan: Continue Plan of Care Treatment Plan: Education, Functional Activity Preet, Functional Strength, Gait, Safety, Therapeutic Exercise, Transfers Treatment Duration: Sep 13, 2019 Frequency: 6 times per week Estimated Hrs Per Day: .25 hour per day Patient and/or Family Agrees t: Yes Safety Risks/Education Patient Education: Gait Training, Transfer Techniques, Correct Positioning, Safety Issues Teaching Recipient: Patient Teaching Methods: Demonstration, Discussion Response to Teaching: Reinforcement Needed Discharge Recommendations Plan Patient will perform bed mobility and transfer training, balance and endurance training, functional strengthening, stair training, gait training, and education, to improve functional mobility an independence at home. Therapy Discharge Recommendati: Home & Family Time/GCodes Time In: 829 Time Out: 842 Total Billed Treatment Time: 13 Total Billed Treatment 1 visit EVL 13' HCAYA LOUIS PT Sep 06, 2019 08:56
[2019-09-06] MEDS ORDERED: LEVO75TA6 PO (09:05)
[2019-09-06] MEDS: SENNA W/DOCUSATE (SENOKOT S) TABLET PO SCH (09:25)
[2019-09-06] MEDS ORDERED: HYDROcodone/APAP 5 MG/325 MG (LORTAB) TAB PO PRN ×2 (09:30→09:45)
[2019-09-06] MEDS ORDERED: HYDR-83 PO (09:33)
--- NOTE | 2019-09-06 09:43 | NUR ---
SPOKE WITH THE PT AND WENT THRU THE EXT MED HISTORY TO COMPLETE THE MED REC PT DENIES TAKING ANY OTC MEDICATIONS
--- NOTE | 2019-09-06 09:53 | Discharge Summary ---
Discharge Summary Hospital Course Was the Problem List Reviewed?: Yes Hospital Course Date of Admission: Sep 05, 2019 at 00:00 Admission Diagnosis : Family Physician/Provider: Fernie Fuller Date of Discharge: 09/06/19 Discharge Diagnosis: [Trimalleolar fracture left ankle ] Hospital Course: The patient was admitted through the ER on 09/04/2019 with a diagnosis of a trimalleolar fracture of the left ankle. She had slipped and fallen in the ditch while wearing flip-flops. She was seen in the ER and x-ray showed a trimalleolar fracture with subluxation of the talus. This was reduced and splinted. She was seen by Dr. Jurado preop been cleared for surgery. She had a history of hypothyroidism and her only medication was for the hyperthyroidism. She is taken to the operating room on 09/04 where under general anesthesia with popliteal block she had an open reduction internal fixation of her trimalleolar fracture left ankle. The distal fibula was fixed with plate and screws and medial malleolus with 2 screws. The posterior malleolar fragment was a small fragment that did not involve the articular surface and did reduce with the above. Postop she did very well. She had no pain. She did get up with therapy postop day number 1 with a walker nonweightbearing and did very well. She wanted to be discharged. She was discharged and sent home with a prescription for a rolling walker which she used with therapy. Also for hydrocodone 5/325 number 30 she can take 1-2 every 4 hours when necessary pain. I will see her back in the office on to we'll change her splint and dressings to a short leg cast. I recommended taking aspirin 325 mg daily for DVT prophylaxis. Continue elevation and ice as needed. [ ] Labs and Pending Lab Test: Laboratory Tests 09/06/19 05:15: White Blood Count 12.7H, Red Blood Count 4.29L, Hemoglobin 11.4L, Hematocrit 35, Mean Corpuscular Volume 81, Mean Corpuscular Hemoglobin 27, Mean Corpuscular Hemoglobin Concent 33, Red Cell Distribution Width 14.9H, Platelet Count 315, Mean Platelet Volume 11.0H, Neutrophils (%) (Auto) 77H, Lymphocytes (%) (Auto) 15, Monocytes (%) (Auto) 8, Eosinophils (%) (Auto) 0, Basophils (%) (Auto) 0, Neutrophils # (Auto) 9.8H, Lymphocytes # (Auto) 1.9, Monocytes # (Auto) 1.0, Eosinophils # (Auto) 0.0, Basophils # (Auto) 0.0, Sodium Level 141, Potassium Level 3.4L, Chloride Level 109H, Carbon Dioxide Level 21, Anion Gap 11, Blood Urea Nitrogen 8, Creatinine 0.75, Estimat Glomerular Filtration Rate > 60, BUN/Creatinine Ratio 11, Glucose Level 123H, Calcium Level 8.3L, Corrected Calcium 8.7, Total Bilirubin 0.6, Aspartate Amino Transf (AST/SGOT) 14, Alanine Aminotransferase (ALT/SGPT) 11, Alkaline Phosphatase 61, Total Protein 6.4, Albumin 3.5 Home Meds Active Hydrocodone-Acetamin 5-325 mg (Hydrocodone/Acetaminophen) 1 Each Tablet 1-2 Tab PO Q4H PRN Reported Levothyroxine Sodium 75 Mcg Tablet 75 Mcg PO DAILY Assessment/Pt Instructions Hydrocodone for pain. Prescription provided. Walker ambulation n onweightbearing on the left. Elevation and ice left ankle. Follow-up in the office on 09/06 Discharge Planning: >30 minutes discharge planning Discharge Instructions Discharge Diet: No Restrictions Activity as Tolerated: No Discharge Physical Examination Vital Signs Vital Signs Date Time Temp Pulse Resp B/P (MAP) Pulse Ox O2 Delivery O2 Flow Rate FiO2 09/06/19 05:49 36.8 68 18 163/82 (109) 96 Room Air 09/05/19 12:40 3 Allergies: Coded Allergies: No Known Drug Allergies (Unverified , 09/04/19) Discharge Summary Date of Admission Sep 05, 2019 at 00:00 Date of Discharge Clinical Quality Measures DVT/VTE Risk/Contraindication: Risk Factor Score Per Nursin RFS Level Per Nursing on Admit: 4+=Very High DALJIT PEPE MD Sep 06, 2019 09:52
--- NOTE | 2019-09-06 10:40 | Progress Note - Hospitalist ---
Subjective HPI/CC On Admission Date Seen by Provider: Sep 06, 2019 Time Seen by Provider: 10:00 CC: Left ankle fracture HPI: This is a 64yoWF clinic Pt of Cris[place] in [place] who has a history of hypothyroidism, who presents after falling with her flip-flop shoe down in a bit of a ditch while she was visiting her boyfriend in [place], she lives in [place], who sustained a very complex left trimalar fracture that is requiring a repair by Dr. Farooq today after I met her. She denies any significant heart or lung history and she doesn't smoke or drink alcohol so she will undergo this surgery and likely admit to inpatient rehab for further evaluation and management. Subjective/Events-last exam Pt doing pretty well since surgery Doing well enough to DC today Aspirin 325mg daily for DVT prophylaxis recommended by Dr. Farooq White count 12.7 Potassium 3.4 Tends to have diarrhea so does not need a laxative sent in Pain medication per Dr. Farooq Review of Systems General: Fatigue, Malaise Musculoskeletal: leg pain Objective Exam Vital Signs Vital Signs Date Time Temp Pulse Resp B/P (MAP) Pulse Ox O2 Delivery O2 Flow Rate FiO2 09/06/19 14:15 36.7 71 18 148/64 95 Room Air 09/05/19 12:40 3 Capillary Refill : Less Than 3 SecondsLess Than 3 Seconds General Appearance: No Apparent Distress, WD/WN, Obese Respiratory: Chest Non Tender, Lungs Clear, Normal Breath Sounds, No Accessory Muscle Use, No Respiratory Distress Cardiovascular: Regular Rate, Rhythm, No Edema, No Gallop, No JVD, No Murmur, Normal Peripheral Pulses Extremity: Other (left leg in immobilizer) Neurologic/Psychiatric: Alert, Oriented x3, No Motor/Sensory Deficits, Normal M ood/Affect Results/Procedures Lab Laboratory Tests 09/06/19 05:15 Patient resulted labs reviewed. Assessment/Plan Assessment and Plan Assess & Plan/Chief Complaint Assessment: Fall Left ankle fracture Hypothyroidism Obesity Plan: Pain control Surgical benefits outweigh medical risks Lovenox Discharge home Aspirin 325mg daily for DVT prophylaxis Clinical Quality Measures DVT/VTE Risk/Contraindication: Risk Factor Score Per Nursin RFS Level Per Nursing on Admit: 4+=Very High CAPRICE BALDWIN DO Sep 06, 2019 10:40
[2019-09-06 12:00] VITALS: BP 148/64
--- NOTE | 2019-09-06 13:11 | NUR ---
"RD ASSESSMENT PMHx: hypothyroidism; Current - L trimalleolar fracture PT INTERACTION: Pt was awake and pleasant during nutrition assessment. Pt states current appetite is not good, and has been that way since her injury. Note avg PO intake <25% x2meal, per chart review. Note pt currently in for L trimalleolar fracture, per chart review. Pt states following a regular diet at home, and has no issues with chewing/swallowing food. Pt states no recent issues with nausea, vomiting, constipation, or diarrhea, and that her last BM was 09/03. Pt states no recent wt changes. Note unable to determine recent wt hx, per chart review. ABNORMAL NUTRITION-RELATED LAB VALUES LOW: Cl 109; glu 123 HIGH: K 3.4; Ca 8.3 Est. kcal needs: 3170-2187 kcal | 15-18 kcal/kg Est. Pro needs: 83-104 g Pro | 0.8-1.0 g Pro/kg PES STATEMENT: Inadequate oral intake (NI-2.1) related to loss of appetite as evidenced by pt interview | avg PO intake <25% x2meal INTERVENTION: Continue with current diet order of Regular diet. Add Ensure Enlive (vary) to meals TID, for increased kcal intake. Provides 350 kcal and 13 g Pro per serving. Will continue to follow and reassess as pt needs, intake, and status change. MONITOR/EVALUATE: PO Intake; Plan of Care; Hydration Status; Weight Status; Lab Values Chris Bell, MS, RD, LD"
[2019-09-06 14:15] VITALS: BP 148/64
--- NOTE | 2019-09-06 14:20 | Occupational Therapy Eval ---
OT Evaluation-General/PLF Medical Diagnosis Admission Date Sep 05, 2019 at 00:00 Medical Diagnosis: left ankle fx Onset Date: Sep 05, 2019 Therapy Diagnosis Therapy Diagnosis: Decreased ADL status. Precautions Precautions/Isolations: Fall Prevention, Standard Precautions Weight Bear Status Weight Bearing Restriction: Non Weight Bearing Location Restriction: L LE Referral Physician: Oseas Zaragoza Reason: Activity Tolerance, Self Care, Evaluation/Treatment, Strengthening/ROM Medical History Current History Pt walking in flip flops in ditch and slid; bimalleolar fx with closed reduction and splinting Reviewed History: Yes Social History Home: Single Level Current Living Status: Alone Entry Into Home: Stairs With Railing Steps Into Home: 5 Pt states will live with boyfriend upon d/c with walk in shower (cannot get LLE wet per pt), boyfriend has 1 step to enter, support from him at home if needed. ADL-Prior Level of Function SCALE: Activities may be completed with or without assistive devices. 4-Mfvkgylcdc-hjpovdo completes the activity by him/herself with no assistance from a helper. 5-Set-up or Clean-up Assistance-helper sets up or cleans up; patient completes activity. Allison assists only prior to or following the activity. 4-Supervision or Touching Assistance-helper provides verbal cues and/or touching/steadying and/or contact guard assistance as patient completes activity. Assistance may be provided throughout the activity or intermittently. 3-Partial/Moderate Assistance-helper does LESS THAN HALF the effort. Allison lifts, holds or supports trunk or limbs, but provides less than half the effort. 2-Substantial/Maximal Assistance-helper does MORE THAN HALF the effort. Allison l ifts or holds trunk or limbs and provides more than half the effort. 6-Pfhtdewhg-hnftzx does ALL the effort. Patient does none of the effort to complete the activity. Or, the assistance of 2 or more helpers is required for the patient to complete the activity. If activity was not attempted, code reason: 7-Patient Refused. 9-Not Applicable-not attempted and the patient did not perform the activity before the current illness, exacerbation or injury. 10-Not Attempted due to Environmental Limitations-(lack of equipment, weather restraints, etc.). 88-Not Attempted due to Medical Conditions or Safety Concerns. ADL PLOF Comments IND w/out use of AE. Self Care: Independent Functional Cognition: Independent DME/Equipment: Shower DME/Equipment Comments no AD Occupation: retired daycare provider. Drive Self: Yes OT Current Status Subjective Pt seen in bed, alert/ oriented. Pt agrees to OT tx session. Pt denies pain. LLE knee to toes wrapped. Pt acknowledges NWB status to LLE. Mental Status/Objective Patient Orientation: Person, Place, Situation, Normal For Age Current Hand Dominance: Right Upper Extremity ROM WFL BUE Upper Extremity Coordination WFL BUE Upper Extremity Sensation WFL BUE Upper Extremity Strength WFL BUE ADL-Treatment Eating (QC): 6 Oral Hygiene (QC): 4 (SBA in stance) Shower/Bathe Self (QC): 4 (Per clinical judgment, pt would require SBA-CGA in stance to complete bottom/ randa hygiene. Pt s/u for sponge bath per judgment.) Upper Body Dressing (QC): 5 (s/u ) Lower Body Dressing (QC): 4 (Pt sits EOB to thread BLE onto legs. CGA during pant hike while maintaining balance.) Other Treatments Pt seen in bed. Bed mob (supine to sit EOB) with SBA. Pt completes dressing EOB- requires CGA/ SBA with tasks. Pt stands to complete pant hike with cues for stability. Pt will require walker and educated on business services representative use for LE dressing. Pt states she will live with boyfriend upon d/c. Pt left in room/ back in bed with all needs met, call light in reach, LLE elevated. No skilled OT tx sessions required as pt demonstrates ability to complete ADL tasks with SBA-CGA during stance. Education OT Patient Education: Correct positioning, Modified ADL techniques, Purpose of tx/functional activities, Safety issues, Transfer techniques, Use of adapted equipment Teaching Recipient: Patient Teaching Methods: Demonstration, Discussion Response to Teaching: Verbalize Understanding, Return Demonstration OT Retirement Goals Senior Mechanical Engineer Goals 1=Demonstrate adherence to instructed precautions during ADL tasks. 2=Patient will verbalize/demonstrate understanding of assistive devices/modifications for ADL. 3=Patient will improve strength/tolerance for activity to enable patient to perform ADL's. OT Education/Plan Problem List/Assessment Assessment: No Skilled OT Needs ID'd Discharge Recommendations Plan/Recommendations: Discharge/Goals Met Therapy Discharge Recommendati: Home & Family Equpiment Recommendations-D/C: Industrial Order Clerk Treatment Plan/Plan of Care Treatment,Training & Education: Yes Patient would benefit from OT for education, treatment and training to promote independence in ADL's, mobility, safety and/or upper extremity function for ADL's. Plan of Care: OTHER (eval and d/c.) Treatment Duration: Sep 06, 2019 Frequency: 1 time per week (logan taylor) Rehab Potential: Fair Time/GCodes Start Time: 13:05 Stop Time: 13:17 Total Time Billed (hr/min): 15 Billed Treatment Time 1YOVANNY (15) ENRIQUE DE LA CRUZ OTR Sep 06, 2019 14:20
--- NOTE | 2019-09-06 14:30 | NUR ---
IRF Evaluation Determination: Denied Explanation: Chart review complete and it appears patient is completing bed mobility with independence, as well as completing transfers and ambulation with supervision. Additionally, this newswriter spoke with treating therapist and he states patient could potentially return home safely at current level of function. Thank you for this referral.
== END 2019-09-06 14:15 | disposition home or self-care (01) | DRG 493 ==
LOC: ER 21:01 → 4TH 09-05
PROVIDERS: ADMIT Orthopaedic Surgery; ATTEND Orthopaedic Surgery
PROC: 0QSH04Z Reposition Left Tibia with Internal Fixation Device, Open Approach (ICD-10-PCS; principal; 2019-09-05 10:27)
DX: S82.852A Displaced trimalleolar fracture of left lower leg, initial encounter for closed fracture (principal); Z68.41 Body mass index [BMI] 40.0-44.9, adult; E03.9 Hypothyroidism, unspecified; W18.30XA Fall on same level, unspecified, initial encounter; E66.9 Obesity, unspecified
CPT/HCPCS: 27840; 36415; 73590; 73610; 76000; 80053; 85025; 87081; 87635; 93005; 93041; 96374; 96375

== ENCOUNTER → 2019-09-07 | Outpatient (CLI) | payer BC ==
[~2019-09-07] MED LIST: HYDR-83 PO; LEVO75TA6 PO
== END ==
LOC: ORTHO 09:24
PROVIDERS: ATTEND Orthopaedic Surgery
DX: S82.852A Displaced trimalleolar fracture of left lower leg, initial encounter for closed fracture (principal); E03.9 Hypothyroidism, unspecified; Z98.890 Other specified postprocedural states
CPT/HCPCS: 29405

== ENCOUNTER → 2019-09-20 | Outpatient (CLI) | payer BC ==
--- NOTE | 2019-09-20 11:30 | Diagnostic Imaging Report ---
EXAMINATION: Left ankle radiographs, 3 views. COMPARISON: September 05, 2019. HISTORY: 64-year-old female, surgery 2 weeks ago for distal tibial and fibular fractures. Follow-up exam. FINDINGS: There are 2 lag screws traversing the previously noted oblique fracture extending to the base of the medial malleolus. There is sideplate and screw fixation hardware at the level of the distal fibula. The hardware appears intact. There are persistent visualized fracture lines without pronounced interval bony callus bridging or periosteal reaction. The alignment of the ankle mortise is grossly unremarkable. There are skin hazel with laterally and medially. There is mild degenerative type enthesopathy at the Achilles tendon insertion IMPRESSION: 1. Intact side plate and screw fixation hardware at the level of the distal fibula as well as lag screws traversing the medial malleolar fracture. There are persistent visualized fracture lines of the distal tibia and fibula without pronounced interval healing response at the current time. Dictated by: Dictated on workstation # [id number]
== END ==
LOC: ORTHO 10:01
PROVIDERS: ATTEND Orthopaedic Surgery
DX: S82.852D Displaced trimalleolar fracture of left lower leg, subsequent encounter for closed fracture with routine healing (principal); Z98.890 Other specified postprocedural states
CPT/HCPCS: 29405; 73610

== ENCOUNTER → 2019-10-04 | Outpatient (CLI) | payer BC ==
[~2019-10-04] MED LIST changes: +HYDR-3812 PO; -HYDR-83 PO
--- NOTE | 2019-10-04 09:21 | Diagnostic Imaging Report ---
HISTORY: Followup trimalleolar fracture of the left ankle. COMPARISON: 09/20/2019. TECHNIQUE: Three views of the left ankle. FINDINGS: There is internal fixation of the medial malleolus fracture with two partially threaded lag screws. Alignment appears stable. There appears to be some healing changes. There is also a healing fracture of the distal left fibula transfixed with a lateral plate and multiple screws. The posterior malleolar fracture appears normal in alignment and the fracture line is not well seen. There is a small tibiotalar joint effusion. IMPRESSION: Healing left ankle trimalleolar fracture in stable alignment and without hardware complication seen. Dictated by: Dictated on workstation # [id number]
== END ==
LOC: ORTHO 08:27
PROVIDERS: ATTEND Orthopaedic Surgery
DX: S82.852D Displaced trimalleolar fracture of left lower leg, subsequent encounter for closed fracture with routine healing (principal); X58.XXXD Exposure to other specified factors, subsequent encounter
CPT/HCPCS: 73610

== ENCOUNTER → 2019-11-01 | Outpatient (CLI) | payer BC ==
--- NOTE | 2019-11-01 09:27 | Diagnostic Imaging Report ---
INDICATION: Left ankle fracture, followup. TIME OF EXAM: 8:51 AM. COMPARISON: 10/18/2019. FINDINGS: A lateral plate and numerous screws transfix the distal fibular fracture. The hardware is intact without fracture or loosening. The alignment of the fibular fracture is stable. The fracture line does remain visible, however. There are two partially threaded screws transfixing the medial malleolus. The ankle alignment is normal. The ankle mortise is well-maintained. The talar dome is smooth. IMPRESSION: Satisfactory postop changes of the left ankle. The fracture of the distal fibula does remain visible. Dictated by: Dictated on workstation # [id number]
== END ==
LOC: ORTHO 08:32
PROVIDERS: ATTEND Orthopaedic Surgery
DX: S82.852D Displaced trimalleolar fracture of left lower leg, subsequent encounter for closed fracture with routine healing (principal)
CPT/HCPCS: 73610

== ENCOUNTER → 2019-11-22 | Outpatient (CLI) | payer BC ==
[~2019-11-22] MED LIST changes: +ACHD5005 PO; -HYDR-3812 PO
== END ==
LOC: ORTHO 08:31
PROVIDERS: ATTEND Orthopaedic Surgery
DX: S82.852A Displaced trimalleolar fracture of left lower leg, initial encounter for closed fracture (principal); Z98.890 Other specified postprocedural states